=== PATIENT | male | born 1990 | race Caucasian/White ===

== ENCOUNTER 2016-11-22 15:55 | Emergency (ER) | payer MEDICARE, MEDICAID ==
[2016-11-22 16:24] VITALS: BP 122/91
[2016-11-22] MEDS ORDERED: Haloperidol INJ IV/IM* 5 MG/ML AMP ONE (17:42)
[2016-11-22] MEDS ORDERED: diPHENhydraMINE IV* 50 MG/ML 1 ml VIAL (BENADRYL) IM ONE (17:42)
[2016-11-22] MEDS ORDERED: LORazepam INJ* 2 MG/ML 1 ML VIAL ONE (17:42)
[2016-11-22] MEDS ORDERED: LORazepam INJ* 2 MG/ML 1 ML VIAL IM ONE (17:42)
[2016-11-22] MEDS ORDERED: Haloperidol INJ IV/IM* 5 MG/ML AMP IM ONE (17:42)
[2016-11-22] MEDS ORDERED: diPHENhydraMINE IV* 50 MG/ML 1 ml VIAL (BENADRYL) ONE (17:42)
[2016-11-22 18:06] LABS: Hematocrit 47 % (42-52); Hemoglobin 15.7 g/dl (14.0-18.0); Mean Corpuscular HGB Conc 34 g/dl (31-36); Mean Corpuscular Hemoglobin 33 pg (27-31); Mean Corpuscular Volume 98 fL (80-94); Mean Platelet Volume 7 um3 (7.4-10.4); Red Blood Count 4.78 10^6/ul (4.0-5.4); Red Cell Distribution Width 13 % (10.5-15); White Blood Count 9.5 10^3/ul (3.5-10.8)
[2016-11-22 18:09] LABS: Urine Bilirubin Negative (Negative); Urine Glucose Negative (Negative); Urine Nitrite Negative (Negative)
[2016-11-22 18:20] LABS: ALT 15 U/L (7-52); AST 23 U/L (13-39); Albumin 4.6 g/dL (3.2-5.2); Alkaline Phosphatase 53 U/L (34-104); Anion Gap 6 mmol/L (2-11); Benzodiazepine Urine Screen None Detected (None Detect); CO2 Carbon Dioxide 24 mmol/L (22-32); Calcium 9.5 mg/dL (8.6-10.3); Chloride 103 mmol/L (101-111); EGFR African American 124.4 (>60); EGFR Non-African American 96.7 (>60); Globulin 2.9 g/dL (2-4); Glucose 94 mg/dL (70-100); Sodium 133 mmol/L (133-145); Total Protein 7.5 g/dL (6.4-8.9)
[2016-11-22 18:49] LABS: Acetaminophen < 15 mcg/mL; Alcohol < 10 mg/dL (<10); Lithium 0.32 mmol/L (0.6-1.2); Salicylate < 2.50 mg/dL (<30)
[2016-11-22 18:57] LABS: TSH (Thyroid Stimulating Horm) 3.17 mcIU/mL (0.34-5.60)
[2016-11-22 19:39] LABS: BUN/Creatinine Ratio 24.7 (8-20); Blood Urea Nitrogen 23 mg/dL (6-24)
[2016-11-23] MEDS ORDERED: Lithium Carbonate TAB* 300 MG PO ONE ×2 (00:55→09:30)
[2016-11-23] MEDS ORDERED: Lithium Carbonate TAB* 300 MG ONE (00:57)
[2016-11-23] MEDS ORDERED: LORazepam TAB(*) 1 MG PO ONE (11:22)
--- NOTE | 2016-11-30 04:48 | ED ---
Gian Pulliam Erika, scribed for Rui Cheney MD on 11/22/16 at 1602 . Psychiatric Complaint - HPI Summary HPI Summary: Patient is a 26-year-old male BIB police as a 945. Pt reports that he does not know why he is a 945, he just states "the police were very nice to me." He states he does not believe it is due to depression or anxiety. Pt reports that he does not have a place to stay tonight. He denies drug or alcohol use today. He states tobacco use. Hx bipolar disorder, schizophrenia. - History Of Current Complaint Chief Complaint: EDMentalHealth Time Seen by Provider: 11/22/16 16:00 Hx Obtained From: Patient Onset/Duration: Lasting Hours, Still Present Timing: Constant Severity Currently: Moderate Aggravating Factor(s): Nothing Alleviating Factor(s): Nothing Associated Signs And Symptoms: Positive: Negative Related History: Positive For: Prior Psychiatric Issues Has Suicidal: Reports: Thoughts - per triage - Allergies/Home Medications Allergies/Adverse Reactions: Allergies Allergy/AdvReac Type Severity Reaction Status Date / Time No Known Allergies Allergy Verified 11/01/16 04:42 PMH/Surg Hx/FS Hx/Imm Hx Sensory History: Reports: Hx Contacts or Glasses - Glasses Opthamlomology History: Reports: Hx Contacts or Glasses - Glasses Psychiatric History: Reports: Hx Post Traumatic Stress Disorder, Hx Schizophrenia, Hx Bipolar Disorder Denies: Hx of Violent Episodes Against Others Comment Only: Hx Eating Disorder - Unable to determine from pt at time of MHE d/t disorganized thoughts - Family History Known Family History: Negative: Cardiac Disease - Social History Alcohol Use: None Hx Substance Use: No Substance Use Type: Reports: None Hx Tobacco Use: Yes Smoking Status (MU): Current Every Day Smoker Type: Cigarettes Amount Used/How Often: one PPD Review of Systems Negative: Fever Psychological: Other - 941 - pt states unknown reason All Other Systems Reviewed And Are Negative: Yes Physical Exam Triage Information Reviewed: Yes Vital Signs On Initial Exam: Temp Pulse Resp BP Pulse Ox 100.1 F 86 18 122/91 100 11/22/16 16:24 11/22/16 16:24 11/22/16 16:24 11/22/16 16:24 11/22/16 16:24 Vital Signs Reviewed: Yes Appearance: Positive: Well-Appearing, No Pain Distress Skin: Positive: Warm, Skin Color Reflects Adequate Perfusion, Dry Head/Face: Positive: Normal Head/Face Inspection Eyes: Positive: EOMI, MARLEN ENT: Positive: Normal ENT inspection Neck: Positive: Supple, Nontender Respiratory/Lung Sounds: Positive: Clear to Auscultation, Breath Sounds Present Cardiovascular: Positive: RRR Abdomen Description: Positive: Nontender, Soft Bowel Sounds: Positive: Present Musculoskeletal: Positive: Normal, Strength/ROM Intact Neurological: Positive: Normal, Sensory/Motor Intact, Alert, Oriented to Person Place, Time Psychiatric: Positive: Affect/Mood Appropriate Diagnostics - Vital Signs Vital Signs Temp Pulse Resp BP Pulse Ox 11/22/16 16:43 100.1 F 84 16 122/91 100 11/22/16 16:24 100.1 F 86 18 122/91 100 - Laboratory Lab Results: Lab Results 11/22/16 11/22/16 11/22/16 Range/Units 17:56 17:56 17:56 WBC 9.5 (3.5-10.8) 10^3/ul RBC 4.78 (4.0-5.4) 10^6/ul Hgb 15.7 (14.0-18.0) g/dl Hct 47 (42-52) % MCV 98 H (80-94) fL MCH 33 H (27-31) pg MCHC 34 (31-36) g/dl RDW 13 (10.5-15) % Plt Count 263 (150-450) 10^3/ul MPV 7 L (7.4-10.4) um3 Neut % (Auto) 68.3 (38-83) % Lymph % (Auto) 19.0 L (25-47) % Tolland % (Auto) 9.0 (1-9) % Eos % (Auto) 2.8 (0-6) % Baso % (Auto) 0.9 (0-2) % Absolute Neuts (auto) 6.5 (1.5-7.7) 10^3/ul Absolute Lymphs (auto) 1.8 (1.0-4.8) 10^3/ul Absolute Monos (auto) 0.9 H (0-0.8) 10^3/ul Absolute Eos (auto) 0.3 (0-0.6) 10^3/ul Absolute Basos (auto) 0.1 (0-0.2) 10^3/ul Absolute Nucleated RBC 0 10^3/ul Nucleated RBC % 0 Sodium 133 (133-145) mmol/L Potassium 4.0 (3.5-5.0) mmol/L Chloride 103 (101-111) mmol/L Carbon Dioxide 24 (22-32) mmol/L Anion Gap 6 (2-11) mmol/L BUN 23 (6-24) mg/dL Creatinine 0.93 (0.67-1.17) mg/dL Est GFR ( Amer) 124.4 (>60) Est GFR (Non-Af Amer) 96.7 (>60) BUN/Creatinine Ratio 24.7 H (8-20) Glucose 94 (70-100) mg/dL Calcium 9.5 (8.6-10.3) mg/dL Total Bilirubin 0.60 (0.2-1.0) mg/dL AST 23 (13-39) U/L ALT 15 (7-52) U/L Alkaline Phosphatase 53 (34-104) U/L Total Protein 7.5 (6.4-8.9) g/dL Albumin 4.6 (3.2-5.2) g/dL Globulin 2.9 (2-4) g/dL Albumin/Globulin Ratio 1.6 (1-3) TSH 3.17 (0.34-5.60) mcIU/mL Urine Color Roopa Urine Appearance Turbid Urine pH 5.0 (5-9) Ur Specific Edgar 1.029 (1.010-1.030) Urine Protein Negative (Negative) Urine Ketones Trace H (Negative) Urine Blood Negative (Negative) Urine Nitrate Negative (Negative) Urine Bilirubin Negative (Negative) Urine Urobilinogen Negative (Negative) Ur Leukocyte Esterase Negative (Negative) Urine Glucose Negative (Negative) Salicylates < 2.50 (<30) mg/dL Urine Opiates Screen (None Detect) Acetaminophen < 15 mcg/mL Ur Barbiturates Screen (None Detect) Ur Phencyclidine Scrn (None Detect) Ur Amphetamines Screen (None Detect) U Benzodiazepines Scrn (None Detect) Mehama 0.32 L (0.6-1.2) mmol/L Urine Cocaine Screen (None Detect) U Cannabinoids Screen (None Detect) Serum Alcohol < 10 (<10) mg/dL 11/22/16 Range/Units 17:56 WBC (3.5-10.8) 10^3/ul RBC (4.0-5.4) 10^6/ul Hgb (14.0-18.0) g/dl Hct (42-52) % MCV (80-94) fL MCH (27-31) pg MCHC (31-36) g/dl RDW (10.5-15) % Plt Count (150-450) 10^3/ul MPV (7.4-10.4) um3 Neut % (Auto) (38-83) % Lymph % (Auto) (25-47) % Tolland % (Auto) (1-9) % Eos % (Auto) (0-6) % Baso % (Auto) (0-2) % Absolute Neuts (auto) (1.5-7.7) 10^3/ul Absolute Lymphs (auto) (1.0-4.8) 10^3/ul Absolute Monos (auto) (0-0.8) 10^3/ul Absolute Eos (auto) (0-0.6) 10^3/ul Absolute Basos (auto) (0-0.2) 10^3/ul Absolute Nucleated RBC 10^3/ul Nucleated RBC % Sodium (133-145) mmol/L Potassium (3.5-5.0) mmol/L Chloride (101-111) mmol/L Carbon Dioxide (22-32) mmol/L Anion Gap (2-11) mmol/L BUN (6-24) mg/dL Creatinine (0.67-1.17) mg/dL Est GFR ( Amer) (>60) Est GFR (Non-Af Amer) (>60) BUN/Creatinine Ratio (8-20) Glucose (70-100) mg/dL Calcium (8.6-10.3) mg/dL Total Bilirubin (0.2-1.0) mg/dL AST (13-39) U/L ALT (7-52) U/L Alkaline Phosphatase (34-104) U/L Total Protein (6.4-8.9) g/dL Albumin (3.2-5.2) g/dL Globulin (2-4) g/dL Albumin/Globulin Ratio (1-3) TSH (0.34-5.60) mcIU/mL Urine Color Urine Appearance Urine pH (5-9) Ur Specific Edgar (1.010-1.030) Urine Protein (Negative) Urine Ketones (Negative) Urine Blood (Negative) Urine Nitrate (Negative) Urine Bilirubin (Negative) Urine Urobilinogen (Negative) Ur Leukocyte Esterase (Negative) Urine Glucose (Negative) Salicylates (<30) mg/dL Urine Opiates Screen None detected (None Detect) Acetaminophen mcg/mL Ur Barbiturates Screen None detected (None Detect) Ur Phencyclidine Scrn None detected (None Detect) Ur Amphetamines Screen None detected (None Detect) U Benzodiazepines Scrn None detected (None Detect) Mehama (0.6-1.2) mmol/L Urine Cocaine Screen None detected (None Detect) U Cannabinoids Screen None detected (None Detect) Serum Alcohol (<10) mg/dL Result Diagrams: 11/22/16 17:56 11/22/16 17:56 Lab Statement: Any lab studies that have been ordered have been reviewed, and results considered in the medical decision making process. Course/Dx - Course Course Of Treatment: 20:15 - pt medically clear for MHU evaluation Assessment/Plan: MHE PENDING AT SHIFT CHANGE STABLE - Differential Dx/Clinical Impression Provider Diagnosis: Mental health problem Discharge - Discharge Plan Condition: Stable Disposition: TRANS HIGHER LVL OF CARE FAC Discharge Disposition Comment: Pt signed out to Dr. Mejia pending MHU Evaluation The documentation as recorded by the Gian garcia Erika accurately reflects the service I personally performed and the decisions made by me, Rui Cheney MD.
--- NOTE | 2016-12-18 19:56 | ED ---
jadyn Pulliam Timothy, scribed for Royal Mejia MD on 11/22/16 at 2310 . Progress - Progress Note Progress Note: Pt is a sign out from Dr. Cheney. Awaiting Psych eval. Pt will be signed out to Dr. Lester. Course/Dx - Course Course Of Treatment: Pt is awaiting psych eval and will be signed out to Dr. Lester. - Diagnoses Provider Diagnoses: Mental health problem The documentation as recorded by the jadyn garcia Timothy accurately reflects the service I personally performed and the decisions made by , Royal Mejia MD.
--- NOTE | 2016-12-23 13:20 | CONSULT ---
Consult Consult: This patient presented on a previous shift and was medically cleared, had a MHE , and was transferred in stable condition with a diagnosis of psychosis.
== END 2016-11-23 13:38 | disposition short-term general hospital (02) ==
LOC: ED 15:55
DX: Z00.8 Encounter for other general examination (principal); Z86.59 Personal history of other mental and behavioral disorders; F17.210 Nicotine dependence, cigarettes, uncomplicated
CPT/HCPCS: 36415; 80053; 80178; 80307; 80320; 80329; 81003; 84443; 85025; 96372; 96374; 99283; A9270-GY; G0480; J1200; J1630; J2060

== ENCOUNTER 2017-01-09 10:36 | Inpatient (IN) | payer MEDICARE, MEDICAID ==
--- NOTE | 2017-01-09 11:40 | ED ---
Psychiatric Complaint - HPI Summary HPI Summary: 26M presents with flight of ideas. He presents via EMS as 941. States had a dream last week and that has increased his anxiety and caused him to have some negative thoughts. He denies any recent drug use. He does not want to hurt myself or others. He has PMH of schizophrenia and bipolar. - History Of Current Complaint Chief Complaint: EDMentalHealth Time Seen by Provider: 01/09/17 11:13 - Allergies/Home Medications Allergies/Adverse Reactions: Allergies Allergy/AdvReac Type Severity Reaction Status Date / Time No Known Allergies Allergy Verified 11/01/16 04:42 PMH/Surg Hx/FS Hx/Imm Hx Cardiovascular History: Denies: Hx Hypertension Sensory History: Reports: Hx Contacts or Glasses - Glasses Opthamlomology History: Reports: Hx Contacts or Glasses - Glasses Psychiatric History: Reports: Hx Post Traumatic Stress Disorder, Hx Schizophrenia, Hx Bipolar Disorder, Other Psychiatric Issues/Disorders - Schizoeffective disorder Denies: Hx of Violent Episodes Against Others Comment Only: Hx Eating Disorder - Unable to determine from pt at time of MHE d/t disorganized thoughts Infectious Disease History: No Infectious Disease History: Denies: Traveled Outside the [place] in Last 30 Days - Family History Known Family History: Negative: Cardiac Disease - Social History Alcohol Use: None Hx Substance Use: No Substance Use Type: Reports: None Hx Tobacco Use: Yes Smoking Status (MU): Current Every Day Smoker Type: Cigarettes Amount Used/How Often: one PPD Review of Systems Negative: Fever Negative: Chest Pain Negative: Shortness Of Breath Positive: Other - flight of ideas All Other Systems Reviewed And Are Negative: Yes Physical Exam Triage Information Reviewed: Yes Vital Signs On Initial Exam: Initial Vitals Temp Pulse Resp BP Pulse Ox 98.2 F 76 16 111/76 100 01/09/17 10:50 01/09/17 10:50 01/09/17 10:50 01/09/17 10:50 01/09/17 10:50 Vital Signs Reviewed: Yes Appearance: Positive: Well-Appearing Skin: Positive: Warm, Dry Head/Face: Positive: Normal Head/Face Inspection Eyes: Positive: Normal, Conjunctiva Clear Respiratory/Lung Sounds: Positive: Clear to Auscultation, Breath Sounds Present Cardiovascular: Positive: Normal, RRR Abdomen Description: Positive: Nontender, Soft Bowel Sounds: Positive: Present - Ulster Coma Scale Coma Scale Total: 15 Diagnostics - Vital Signs Vital Signs Temp Pulse Resp BP Pulse Ox 01/09/17 10:50 98.2 F 76 16 111/76 100 - Laboratory Result Diagrams: 01/09/17 11:35 01/09/17 11:35 Lab Statement: Any lab studies that have been ordered have been reviewed, and results considered in the medical decision making process. Re-Evaluation - Re-Evaluation First Eval Comment: became agitated so dr bustamante gave b52 Course/Dx - Course Course Of Treatment: 26M presents as 941 via EMS. has flight of ideas on exam. denies any SI/HI. has PMH of schizophrenia and bipolar. is medically clear for MHE, will be admitted due to not taking medications - Differential Dx/Clinical Impression Differential Diagnosis/HQI/PQRI: Positive: Bipolar Disorder, Schizophrenia Provider Diagnosis: Schizophrenia, Psychosis Discharge - Discharge Plan Condition: Stable Disposition: ADMITTED TO [facility]
[2017-01-09 11:46] LABS: Hematocrit 46 % (42-52); Hemoglobin 15.6 g/dl (14.0-18.0); Mean Corpuscular HGB Conc 34 g/dl (31-36); Mean Corpuscular Hemoglobin 33 pg (27-31); Mean Corpuscular Volume 97 fL (80-94); Mean Platelet Volume 8 um3 (7.4-10.4); Red Blood Count 4.74 10^6/ul (4.0-5.4); Red Cell Distribution Width 13 % (10.5-15); White Blood Count 4.3 10^3/ul (3.5-10.8)
[2017-01-09 12:02] LABS: ALT 11 U/L (7-52); AST 19 U/L (13-39); Albumin 4.4 g/dL (3.2-5.2); Alkaline Phosphatase 45 U/L (34-104); Anion Gap 7 mmol/L (2-11); Blood Urea Nitrogen 13 mg/dL (6-24); CO2 Carbon Dioxide 25 mmol/L (22-32); Calcium 9.8 mg/dL (8.6-10.3); Chloride 105 mmol/L (101-111); EGFR African American 124.4 (>60); EGFR Non-African American 96.7 (>60); Globulin 2.9 g/dL (2-4); Glucose 81 mg/dL (70-100); Potassium 4.2 mmol/L (3.5-5.0); Sodium 137 mmol/L (133-145); Total Protein 7.3 g/dL (6.4-8.9)
[2017-01-09 12:18] LABS: Acetaminophen < 15 mcg/mL; Alcohol < 10 mg/dL (<10); Salicylate < 2.50 mg/dL (<30)
[2017-01-09 12:27] LABS: TSH (Thyroid Stimulating Horm) 1.68 mcIU/mL (0.34-5.60)
[2017-01-09] MEDS ORDERED: LORazepam TAB(*) 1 MG PO ONE (13:29)
[2017-01-09] MEDS ORDERED: LORazepam INJ* 2 MG/ML 1 ML VIAL IM ONE (14:34)
[2017-01-09] MEDS ORDERED: diPHENhydraMINE IV* 50 MG/ML 1 ml VIAL (BENADRYL) IM ONE (14:34)
[2017-01-09] MEDS ORDERED: Haloperidol INJ IV/IM* 5 MG/ML AMP IM ONE (14:34)
[2017-01-09] MEDS ORDERED: Haloperidol INJ IV/IM* 5 MG/ML AMP ONE (14:49)
[2017-01-09] MEDS ORDERED: LORazepam INJ* 2 MG/ML 1 ML VIAL ONE (14:49)
[2017-01-09] MEDS ORDERED: diPHENhydraMINE IV* 50 MG/ML 1 ml VIAL (BENADRYL) ONE (14:49)
[2017-01-09] MEDS ORDERED: Acetaminophen TAB* 325 MG PO PRN (15:59)
[2017-01-09] MEDS ORDERED: Al Hydrox/Mg Hydrox/Simet LIQ* 30 ML UDC PO PRN (15:59)
[2017-01-09] MEDS ORDERED: fluPHENAZine HCL TAB* 5 MG PO PRN (16:01)
[2017-01-09] MEDS ORDERED: Lithium Carbonate TAB* 300 MG PO SCH (21:00)
[2017-01-09] MEDS: Lithium Carbonate TAB* 300 MG PO SCH (21:01)
[2017-01-10] MEDS: Vitamin THERAPEUTIC TAB PO SCH (10:37)
[2017-01-10] MEDS: Lithium Carbonate TAB* 300 MG PO SCH ×2 (10:38→20:39)
--- NOTE | 2017-01-10 13:02 | HP ---
DATE OF ADMISSION: 01/09/2017. JUSTIFICATION FOR ADMISSION: The patient is in need of 24 hour supervision and care secondary to in ability to take care of himself secondary to paranoid and persecutory ideations. CHIEF COMPLAINT: "I don't think that it's a delusion when you see 40 people walking after you in a [employer]." HISTORY OF PRESENT ILLNESS: The patient is a 26-year-old, single, white male with a history of schi zoaffective disorder with serial nonadherence to outpatient psychiatric treatment who was brought in to the hospital by police due to frequently arriving at law enforcement agencies with bizarre delus ional complaints. My understanding is that the patient has made false reports of being stalked and p ersecuted to not only the [place] [employer], but to the local [facility] branch, as well as the [facility] Police. When he arrived, he was agitated, requiring an intramuscular injection of antips ychotic medications. He was observed pouring water onto the floor and telling people that they were not qualified to do their jobs. We were able to reach his father, Madhu Bernard, who lives in [place], [place] and Ray indicated that the patient has been off his medications for over a month. He apparently believes that he is being followed around the city, including 50 people at a local [facility] stating that they wanted to talk to him. He also is telling me that the local [employer] wants his input for crimes around the subject of drug dealing in our community. Apparently the patient is now homeless, being kicked out of his apartment that he shared with some students at [employer]. He blames this on them. Indicating that they were frequently trying to convince him that he should use drugs. One of his trips to the [facility] Police was to inform on them. An michelle tional concern is that he recently gave $6,000.00 away to a [employer] fund. He also ended his disability and food stamps due to his paranoid thoughts. Right now he does not have realistic thoug hts about where he will live or how he will take care of himself. We spoke with representatives of [facility] who indicate that he has not been regularly following up with them and they are concerned because he is not eating. They had initiated a court order for an AOT which is s till being processed. When I asked the patient what he wants, he indicates that he does not need ps ychiatric hospitalization nor does he need psychiatric medications, telling me that various medicati ons have made him feel either high or made him hallucinate. He is unable to give me much of a coher ent plan in terms of how he would meet his most basic needs in the community were I to discharge kathleen myers. PAST PSYCHIATRIC HISTORY: The patient was admitted to my service in September of 2016 at which time he was stabilized on Kuna. He returned to our hospital on November 22 due to psychotic agitatio n and at that time was transferred to [facility] due to lack of bed availability here a [facility]. The patient indicates that he has been suicidal in the past starting in 2007 following a jovany oting event on the campus of [facility]. He indicates that although he has had suicidal ideation s on numerous occasions, that he denies them currently and he has not history of formal attempts. H e also denies violence towards others. The patient indicates that he has had up to four hospitaliza tions at the [facility] in [place], [place], the first being in November of 2012. His hos pitalizations there have been for various reasons, such as stopping eating or being preoccupied with a murder which had occurred in [place], [place]. Apparently his long-term outpatient psych iatrist named Dr. Antonio Goss in 2015 and the patient has never really hooked on wit h any formal outpatient therapy since then. He indicates that he has had several trials of medicati ons in the past, including at least one trial with an SRI. He has been on Depakote, Kuna, Invega , Risperdal, Zyprexa, Abilify, Wellbutrin, and Seroquel. In the past, he has undergone treatment ov er his objection, along with forced medications. He has no history of state hospitalization. His di agnosis has been schizoaffective disorder, bipolar type. PAST MEDICAL HISTORY: No active problems. PAST SURGICAL HISTORY: No history of surgeries. MEDICATIONS: Currently none. ALLERGIES: No known drug allergies. FAMILY HISTORY: The patient states that he is unaware of anyone having mental illness within his fa christopher. SUBSTANCE ABUSE HISTORY: Negative for illicit drugs, alcohol, or tobacco. SOCIAL HISTORY: The patient was born in an [employer] family following his father around the country as h is father served in the armed forces. He is the oldest of three children, having a 25-year-old brot her and a 16-year-old half-sister. His parents when he was very young and he was raised pr imarily by his father with the assistance of a paternal aunt. He was able to graduate high school [place], [place] where his mom currently lives and he had three years of college at the [employer]. 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 The patient has never bee n in the . He has never been , has no children. He is not sexually active and does not have any history of sexually transmitted diseases. The patient is not mormon and indicates t hat he has never had any problem with the legal authorities. REVIEW OF SYSTEMS: The patient denies headache, double vision, sore throat, cough, chest pain, and difficulty breathing. He denies abdominal pain, nausea, vomiting, diarrhea, or constipation. He de nies difficulty ambulating, fevers, changes in weight or rashes. PHYSICAL EXAMINATION VITAL SIGNS: Blood pressure 117/57, heart rate 75, temperature 97.8 degrees Fahrenheit, respiratory rate 16, oxygen saturations 100 percent on room air. HEENT: Head is normocephalic, atraumatic. NECK: Supple. CHEST: Clear to auscultation bilaterally. CARDIAC: Exam reveals normal heart sounds. ABDOMEN: Soft and nontender. SKIN: Warm and dry. MUSCULOSKELETAL: Exam reveals a full range of motion in all four extremities. NEUROLOGIC: He is grossly intact with no focal deficits. LABORATORY DATA: His complete blood count is within normal limits as is his complete metabolic reed el. TSH is normal at 1.68. Alcohol level is negative. MENTAL STATUS EXAM: The patient is a young, white male wearing eye glasses with brown hair. He shayne ears to have somewhat minimal grooming with a receding hairline. He is wearing patient scrubs. He a ppears to be somewhat uncomfortable, guarded and suspicious. Voice has normal rate, tone and volume . Mood is anxious with a constricted affect. Thought process is circumstantial. Thought content i s significant for paranoid delusions to the effect that people are following him and trying to get h im to use drugs. He denies suicidal or homicidal ideations at this time. He denies auditory of vis ual hallucinations. Insight and judgment appear to be markedly impaired given his long history of r efusing medications. Cognitively, he is awake and alert with what would appear to be an average int ellect. DIAGNOSES: AXIS I: Schizoaffective disorder, bipolar type. AXIS II: Deferred. AXIS III: None. AXIS IV: Moderate, housing and access to healthcare stressors. AXIS V: At this time is 30. IMPRESSION: The patient is a 26-year-old, single, white male with a history of schizoaffective diso rder and recurrent noncompliance with antipsychotic medications who has not followed through with me dical or psychiatric treatment here in the [facility] since moving from [place] back in September of 2016. Currently, he presents with extreme paranoia and obvious lack of self-care. He is awaitin g an AOT order through the [facility] and his family has a great deal of c oncern about his lack of self-care, specifically he is homeless, apparently not eating recently, has given up his Social Security and food stamps, and recently gave his money away to a chapo. These do not clau well in terms of his thought process and ability to make rational decisions for his own self preservation. This and his over utilization and delusional misuse of local law enforcement re sources make me very concerned about his well being and I think the hospital is justified in keeping him here on an involuntary 9.39 status. PLAN: The patient is admitted to the Adult Behavioral [facility] Unit where he is placed on q.30 minute checks for his own safety. After discussing his various medication trials in the past, ultimately he does agree to low dose Abilify. Will try to contact his father for further collateral informatio n and to rally psychosocial support. It may be that he is better off being back in the [facility]. If we cannot stabilize him, we would consider long-term state hospitalization in the event that we did not feel that he could safely reside back in the community following discharge. While alexandra kulkarni is here, he is certainly encouraged to avail himself of all milieu activities, including individua l and group psychotherapies. [id number]/[facility] #: [id number]
[2017-01-10] MEDS ORDERED: ARIPiprazole TAB* 5 MG PO SCH (21:00)
[2017-01-11] MEDS: Lithium Carbonate TAB* 300 MG PO SCH ×2 (08:30→21:11)
[2017-01-11] MEDS: Vitamin THERAPEUTIC TAB PO SCH (08:30)
--- NOTE | 2017-01-11 13:58 | PN ---
Subjective - Subjective Service Type: 48305 Hosp care 15 min low complexity Subjective: The patient appears much more reality-focussed today and is talking with AUDELIA Felton about supportive housing and ACT services when I approach. He is compliant with the lithium but refusing aripiprazole, indicating that it causes confusion and distorted thinking. He wants to get into a supported living environment following this discharge and appears to be cooperating with staff on this. He is reluctant to have his father, Boyd Bernard, come for a family visit from [place], [place], but he doesn't refuse it. He denies SI or HI. Objective - Appearance Appearance: Well Developed/Nourished Dysmorphic Features: No Hygiene: Normal Grooming: Fairly Well Kept - Behavior Psychomotor Activities: Normal Exhibits Abnormal Movement: No - Attitude and Relatedness Attitude and Relatedness: Cooperative Eye Contact: Fair - Speech Quality: Unpressured Latencies: Normal Quantity: Appropriate - Mood Patient's Decription of Mood: "Fine" - Affect Observed Affect: Fair Affect Consistent with: Euthymia - Thought Process Patient's Thought Process: Coherent Thought Content: Yes Paranoid Ideation, No Passive Wish, No Suicidal Planning, No Homicidal Ideation - Sensorium Experiencing Hallucinations: No, Sensorium is Clear Type of Hallucinations: Visual: No, Auditory: No, Command: No - Level of Consciousness Level of Consciousness: Alert Orientation: Yes Intact, Yes Orientated to Time, Yes Orientated to Place, Yes Orientated to Person - Impulse Control Impulse Control: Tenuous - Insight and Judgement Insight and Judgement: Fair - Group Participation Particating in Group Activities: No - Medication Management Medication Management Adherence: Yes Assessment - Assessment Merits Inpatient Hospitalization: For Immediate Safety, For Stabilization Inpatient DSM-IV Dx: Schizoaffective DO, bipolar type Clinical Impression: 26 y.o. single, white male with a hx of schizoaffective DO, bipolar type who was admitted involuntarily due to paranoia, lack of self care, not eating and giving his money away to [employer]. He is now homeless and had his SSI and food stamp benefits turned off. Plan - Plan Treatment Plan: Name: SPENCER BERNARD Birthdate: 1990 [id number] The patient is taking lithium 600mg PO BID but declines antipsychotics, including long acting injectables. He appears less delusional today and is appropriately working with SW on d/c planning. Continued Medication Management: Continue Outpt Medication Medications: Current Medications Acetaminophen (Tylenol Tab*) 650 mg PO Q4H PRN PRN Reason: for pain; or Temp >101 F Al Hydrox/Mg Hydrox/Simethicone (Maalox Plus*) 30 ml PO Q4H PRN PRN Reason: INDIGESTION Fluphenazine HCl (Prolixin Tab*) 5 mg PO Q6H PRN PRN Reason: AGITATION/ANXIETY/INSOMNIA [place] Carbonate ([place] Carbonate Tab*) 600 mg PO BID [facility] Last Admin: 01/11/17 08:30 Dose: 600 mg Multivitamins (Theragran Tab*) 1 tab PO DAILY [facility] Last Admin: 01/11/17 08:30 Dose: 1 tab - Discharge Plan Discharge Plan: Inpatient Hospitalization
[2017-01-12] MEDS: Vitamin THERAPEUTIC TAB PO SCH (08:33)
[2017-01-12] MEDS: Lithium Carbonate TAB* 300 MG PO SCH ×2 (08:33→20:53)
--- NOTE | 2017-01-12 10:44 | PN ---
Subjective - Subjective Service Type: 05574 Hosp care 15 min low complexity Subjective: The patient has been cooperative with SW efforts to wrap residential and clinical psychiatric services around him here in the [facility]. He remains somewhat paranoid but with no AH, VH, SI or HI. He is tolerating lithium well and offers no current complaints. Objective - Appearance Appearance: Well Developed/Nourished Dysmorphic Features: No Hygiene: Normal Grooming: Fairly Well Kept - Behavior Psychomotor Activities: Normal Exhibits Abnormal Movement: No - Attitude and Relatedness Attitude and Relatedness: Cooperative Eye Contact: Fair - Speech Quality: Unpressured Latencies: Normal Quantity: Appropriate - Mood Patient's Decription of Mood: "Okay" - Affect Observed Affect: Good Affect Consistent with: Euthymia - Thought Process Patient's Thought Process: Coherent Thought Content: Yes Paranoid Ideation, No Passive Wish, No Suicidal Planning, No Homicidal Ideation - Sensorium Experiencing Hallucinations: No, Sensorium is Clear Type of Hallucinations: Visual: No, Auditory: No, Command: No - Level of Consciousness Level of Consciousness: Alert Orientation: Yes Intact, Yes Orientated to Time, Yes Orientated to Place, Yes Orientated to Person - Impulse Control Impulse Control: Tenuous - Insight and Judgement Insight and Judgement: Fair - Group Participation Particating in Group Activities: Yes - Medication Management Medication Management Adherence: Yes Assessment - Assessment Merits Inpatient Hospitalization: Consolidate Improvements, Pending Safe DC Plan Inpatient DSM-IV Dx: Schizoaffective DO, bipolar type Clinical Impression: 26 y.o. single, white male with a hx of schizoaffective DO, bipolar type who was admitted involuntarily due to paranoia, lack of self care, not eating and giving his money away to [employer]. He is now homeless and had his SSI and food stamp benefits turned off. Plan - Plan Treatment Plan: Name: SPENCER BECK Birthdate: 1990 [id number] The patient is taking lithium 600mg PO BID but declines antipsychotics, including long acting injectables. He appears less delusional today and is appropriately working with on d/c planning. Family meeting with his father on January 17 at 11:00. Continued Medication Management: Continue Outpt Medication Medications: Current Medications Acetaminophen (Tylenol Tab*) 650 mg PO Q4H PRN PRN Reason: for pain; or Temp >101 F Al Hydrox/Mg Hydrox/Simethicone (Maalox Plus*) 30 ml PO Q4H PRN PRN Reason: INDIGESTION Fluphenazine HCl (Prolixin Tab*) 5 mg PO Q6H PRN PRN Reason: AGITATION/ANXIETY/INSOMNIA [place] Carbonate ([place] Carbonate Tab*) 600 mg PO BID [facility] Last Admin: 01/12/17 08:33 Dose: 600 mg Multivitamins (Theragran Tab*) 1 tab PO DAILY [facility] Last Admin: 01/12/17 08:33 Dose: 1 tab - Discharge Plan Discharge Plan: Inpatient Hospitalization
[2017-01-13] MEDS: Lithium Carbonate TAB* 300 MG PO SCH ×2 (09:24→21:38)
[2017-01-13] MEDS: Vitamin THERAPEUTIC TAB PO SCH (09:24)
--- NOTE | 2017-01-13 13:10 | PN ---
Subjective - Subjective Service Type: 83039 Hosp care 15 min low complexity Subjective: The patient is calm and cooperative and denies any acute symptoms of mental illness. He expresses being nervous about the future and seems to acknowledge that maintaining adherence with mental health treatment in the community and staying out of the hospital has been a struggle for him in the past. "I just need to know that I'm on the right path before I get out of here." He denies SI , HI, AH or VH. Objective - Appearance Appearance: Well Developed/Nourished Dysmorphic Features: No Hygiene: Normal Grooming: Well Kept - Behavior Psychomotor Activities: Normal Exhibits Abnormal Movement: No - Attitude and Relatedness Attitude and Relatedness: Cooperative Eye Contact: Fair - Speech Quality: Unpressured Latencies: Normal Quantity: Appropriate - Mood Patient's Decription of Mood: "Okay" - Affect Observed Affect: Fair Affect Consistent with: Euthymia - Thought Process Patient's Thought Process: Coherent Thought Content: Yes Paranoid Ideation, No Passive Wish, No Suicidal Planning, No Homicidal Ideation - Sensorium Experiencing Hallucinations: No, Sensorium is Clear Type of Hallucinations: Visual: No, Auditory: No, Command: No - Level of Consciousness Level of Consciousness: Alert Orientation: Yes Intact, Yes Orientated to Time, Yes Orientated to Place, Yes Orientated to Person - Impulse Control Impulse Control: Tenuous - Insight and Judgement Insight and Judgement: Fair - Group Participation Particating in Group Activities: Yes - Medication Management Medication Management Adherence: Yes Assessment - Assessment Merits Inpatient Hospitalization: Consolidate Improvements, Pending Safe DC Plan Inpatient DSM-IV Dx: Schizoaffective DO, bipolar type Clinical Impression: 26 y.o. single, white male with a hx of schizoaffective DO, bipolar type who was admitted involuntarily due to paranoia, lack of self care, not eating and giving his money away to [employer]. He is now homeless and had his SSI and food stamp benefits turned off. Plan - Plan Treatment Plan: Name: SPENCER BECK Birthdate: 1990 [id number] The patient is taking lithium 600mg PO BID but declines antipsychotics, including long acting injectables. He has become less delusional and is actively working with SW on d/c planning. Family meeting with his father on January 17 at 11:00. Continued Medication Management: Continue Outpt Medication Medications: Current Medications Acetaminophen (Tylenol Tab*) 650 mg PO Q4H PRN PRN Reason: for pain; or Temp >101 F Al Hydrox/Mg Hydrox/Simethicone (Maalox Plus*) 30 ml PO Q4H PRN PRN Reason: INDIGESTION Fluphenazine HCl (Prolixin Tab*) 5 mg PO Q6H PRN PRN Reason: AGITATION/ANXIETY/INSOMNIA [place] Carbonate ([place] Carbonate Tab*) 600 mg PO BID [facility] Last Admin: 01/13/17 09:24 Dose: 600 mg Multivitamins (Theragran Tab*) 1 tab PO DAILY [facility] Last Admin: 01/13/17 09:24 Dose: 1 tab - Discharge Plan Discharge Plan: Inpatient Hospitalization
[2017-01-14] MEDS: Lithium Carbonate TAB* 300 MG PO SCH ×2 (08:21→20:51)
[2017-01-14] MEDS: Vitamin THERAPEUTIC TAB PO SCH (08:22)
--- NOTE | 2017-01-14 15:05 | PN ---
Subjective - Subjective Service Type: 60298 Hosp care 15 min low complexity Subjective: The patient continues to adhere to twice daily lithium therapy and does not demonstrate any overt psychosis. He is visible, and audible, on the unit, serenading his peers to singing, while playing the unit guitar. He denies any acute problems and is looking forward to the family meeting with his father on Monday (01/17) for d/c planning. He denies SI, HI, AH, VH. Objective - Appearance Appearance: Well Developed/Nourished Dysmorphic Features: No Hygiene: Normal Grooming: Fairly Well Kept - Behavior Psychomotor Activities: Normal Exhibits Abnormal Movement: No - Attitude and Relatedness Attitude and Relatedness: Cooperative Eye Contact: Fair - Speech Quality: Unpressured Latencies: Normal Quantity: Appropriate - Mood Patient's Decription of Mood: "Okay" - Affect Observed Affect: Fair Affect Consistent with: Euthymia - Thought Process Patient's Thought Process: Coherent Thought Content: Yes Paranoid Ideation, No Passive Wish, No Suicidal Planning, No Homicidal Ideation - Sensorium Experiencing Hallucinations: No, Sensorium is Clear Type of Hallucinations: Visual: No, Auditory: No, Command: No - Level of Consciousness Level of Consciousness: Alert Orientation: Yes Intact, Yes Orientated to Time, Yes Orientated to Place, Yes Orientated to Person - Impulse Control Impulse Control: Tenuous - Insight and Judgement Insight and Judgement: Fair - Group Participation Particating in Group Activities: Yes - Medication Management Medication Management Adherence: Yes Assessment - Assessment Merits Inpatient Hospitalization: Consolidate Improvements, Pending Safe DC Plan Inpatient DSM-IV Dx: Schizoaffective DO, bipolar type Clinical Impression: 26 y.o. single, white male with a hx of schizoaffective DO, bipolar type who was admitted involuntarily due to paranoia, lack of self care, not eating and giving his money away to [employer]. He is now homeless and had his SSI and food stamp benefits turned off. Plan - Plan Treatment Plan: Name: SPENCER BECK Birthdate: 1990 [id number] The patient is taking lithium 600mg PO BID but declines antipsychotics, including long acting injectables. He has become less delusional and is actively working with SW on d/c planning. Family meeting with his father on January 17 at 13:00. Continued Medication Management: Continue Outpt Medication Medications: Current Medications Acetaminophen (Tylenol Tab*) 650 mg PO Q4H PRN PRN Reason: for pain; or Temp >101 F Al Hydrox/Mg Hydrox/Simethicone (Maalox Plus*) 30 ml PO Q4H PRN PRN Reason: INDIGESTION Fluphenazine HCl (Prolixin Tab*) 5 mg PO Q6H PRN PRN Reason: AGITATION/ANXIETY/INSOMNIA [place] Carbonate ([place] Carbonate Tab*) 600 mg PO BID [facility] Last Admin: 01/14/17 08:21 Dose: 600 mg Multivitamins (Theragran Tab*) 1 tab PO DAILY [facility] Last Admin: 01/14/17 08:22 Dose: 1 tab - Discharge Plan Discharge Plan: Inpatient Hospitalization
[2017-01-15] MEDS: Lithium Carbonate TAB* 300 MG PO SCH ×2 (08:28→20:30)
[2017-01-15] MEDS: Vitamin THERAPEUTIC TAB PO SCH (08:28)
[2017-01-16] MEDS: Lithium Carbonate TAB* 300 MG PO SCH ×2 (08:28→20:47)
[2017-01-16] MEDS: Vitamin THERAPEUTIC TAB PO SCH (08:29)
--- NOTE | 2017-01-16 11:53 | PN ---
Subjective - Subjective Service Type: 10342 Hosp care 15 min low complexity Subjective: The patient has no complaints and is tolerating his medications well. He has meetings tomorrow with his father, as well as [facility] services to discuss d/c planning and housing issues respectively. He denies paranoia, SI or HI. Objective - Appearance Appearance: Well Developed/Nourished Dysmorphic Features: No Hygiene: Normal Grooming: Fairly Well Kept - Behavior Psychomotor Activities: Normal Exhibits Abnormal Movement: No - Attitude and Relatedness Attitude and Relatedness: Cooperative Eye Contact: Good - Speech Quality: Unpressured Latencies: Normal Quantity: Appropriate - Mood Patient's Decription of Mood: "Good" - Affect Observed Affect: Fair Affect Consistent with: Euthymia - Thought Process Patient's Thought Process: Coherent Thought Content: No Passive Wish, No Suicidal Planning, No Homicidal Ideation, No Paranoid Ideation - Sensorium Experiencing Hallucinations: No, Sensorium is Clear Type of Hallucinations: Visual: No, Auditory: No, Command: No - Level of Consciousness Orientation: Yes Intact, Yes Orientated to Time, Yes Orientated to Place, Yes Orientated to Person - Impulse Control Impulse Control: Tenuous - Insight and Judgement Insight and Judgement: Fair - Group Participation Particating in Group Activities: Yes - Medication Management Medication Management Adherence: Yes Assessment - Assessment Merits Inpatient Hospitalization: Consolidate Improvements, Pending Safe DC Plan Inpatient DSM-IV Dx: Schizoaffective DO, bipolar type Clinical Impression: 26 y.o. single, white male with a hx of schizoaffective DO, bipolar type who was admitted involuntarily due to paranoia, lack of self care, not eating and giving his money away to [employer]. He is now homeless and had his SSI and food stamp benefits turned off. Plan - Plan Treatment Plan: Name: SPENCER BECK Birthdate: 1990 [id number] The patient is taking lithium 600mg PO BID but declines antipsychotics, including long acting injectables. He has become less delusional and is actively working with on d/c planning. Family meeting with his father on January 17 at 13:00. Continued Medication Management: Continue Outpt Medication Medications: Current Medications Acetaminophen (Tylenol Tab*) 650 mg PO Q4H PRN PRN Reason: for pain; or Temp >101 F Al Hydrox/Mg Hydrox/Simethicone (Maalox Plus*) 30 ml PO Q4H PRN PRN Reason: INDIGESTION Fluphenazine HCl (Prolixin Tab*) 5 mg PO Q6H PRN PRN Reason: AGITATION/ANXIETY/INSOMNIA [place] Carbonate ([place] Carbonate Tab*) 600 mg PO BID [facility] Last Admin: 01/16/17 08:28 Dose: 600 mg Multivitamins (Theragran Tab*) 1 tab PO DAILY [facility] Last Admin: 01/16/17 08:29 Dose: 1 tab - Discharge Plan Discharge Plan: Inpatient Hospitalization
[2017-01-17] MEDS: Lithium Carbonate TAB* 300 MG PO SCH ×2 (08:30→20:40)
[2017-01-17] MEDS: Vitamin THERAPEUTIC TAB PO SCH (08:30)
--- NOTE | 2017-01-17 16:48 | PN ---
Subjective - Subjective Service Type: 11321 Family Medical Psyc Subjective: Family meeting with patient accompanied by AUDELIA Felton and patient's father, Mr. Antwan Bernard. Spencer continues to express his interest in remaining in treatment and thinks supportive housing along ACT services will allow him to remain in the community without the necessity of repeat psychiatric hospitalizations. "I like how I feel on the lithium. I like that it's a natural substance. I plan on staying on it for at least a year before I get off." The patient is confronted about his history of repeat decompensations in the setting of poor med adherence and advised not to make any changes in his treatment without advising his providers first. He agrees to this. Father is mostly stoic throughout the meeting although he does reveal his concerns regarding Spencer's handling of his money and he inquires as to whether we can refer the patient to a telecommunications sales representative payee in the community. Spencer expresses his agreement with this. Objective - Appearance Appearance: Well Developed/Nourished Dysmorphic Features: No Hygiene: Normal Grooming: Fairly Well Kept - Behavior Psychomotor Activities: Normal Exhibits Abnormal Movement: No - Attitude and Relatedness Attitude and Relatedness: Cooperative Eye Contact: Good - Speech Quality: Unpressured Latencies: Normal Quantity: Appropriate - Mood Patient's Decription of Mood: "Good" - Affect Observed Affect: Good Affect Consistent with: Euthymia - Thought Process Patient's Thought Process: Coherent Thought Content: No Passive Wish, No Suicidal Planning, No Homicidal Ideation, No Paranoid Ideation - Sensorium Experiencing Hallucinations: No, Sensorium is Clear Type of Hallucinations: Visual: No, Auditory: No, Command: No - Level of Consciousness Level of Consciousness: Alert Orientation: Yes Intact, Yes Orientated to Time, Yes Orientated to Place, Yes Orientated to Person - Impulse Control Impulse Control: Tenuous - Insight and Judgement Insight and Judgement: Fair - Group Participation Particating in Group Activities: Yes - Medication Management Medication Management Adherence: Yes Assessment - Assessment Merits Inpatient Hospitalization: Consolidate Improvements, Pending Safe DC Plan Inpatient DSM-IV Dx: Schizoaffective DO, bipolar type Clinical Impression: 26 y.o. single, white male with a hx of schizoaffective DO, bipolar type who was admitted involuntarily due to paranoia, lack of self care, not eating and giving his money away to [employer]. He is now homeless and had his SSI and food stamp benefits turned off. Plan - Plan Treatment Plan: Name: SPENCER BERNARD Birthdate: 1990 [id number] The patient is taking lithium 600mg PO BID but declines antipsychotics, including long acting injectables. He has become less delusional and is actively working with on d/c planning. Await placement. Continued Medication Management: Continue Outpt Medication Medications: Current Medications Acetaminophen (Tylenol Tab*) 650 mg PO Q4H PRN PRN Reason: for pain; or Temp >101 F Al Hydrox/Mg Hydrox/Simethicone (Maalox Plus*) 30 ml PO Q4H PRN PRN Reason: INDIGESTION Fluphenazine HCl (Prolixin Tab*) 5 mg PO Q6H PRN PRN Reason: AGITATION/ANXIETY/INSOMNIA [place] Carbonate ([place] Carbonate Tab*) 600 mg PO BID [facility] Last Admin: 01/17/17 08:30 Dose: 600 mg Multivitamins (Theragran Tab*) 1 tab PO DAILY [facility] Last Admin: 01/17/17 08:30 Dose: 1 tab - Discharge Plan Discharge Plan: Inpatient Hospitalization
[2017-01-18] MEDS: Lithium Carbonate TAB* 300 MG PO SCH ×2 (08:20→20:07)
[2017-01-18] MEDS: Vitamin THERAPEUTIC TAB PO SCH (08:20)
--- NOTE | 2017-01-18 11:01 | PN ---
Subjective - Subjective Service Type: 35767 Hosp care 15 min low complexity Subjective: The patient feels that the meeting with his father went well and he is future- oriented, talking about setting up services with supportive housing and ACT. He has no acute complaints. Objective - Appearance Appearance: Well Developed/Nourished Dysmorphic Features: No Hygiene: Normal Grooming: Well Kept - Behavior Psychomotor Activities: Normal Exhibits Abnormal Movement: No - Attitude and Relatedness Attitude and Relatedness: Cooperative Eye Contact: Good - Speech Quality: Unpressured Latencies: Normal Quantity: Appropriate - Mood Patient's Decription of Mood: "Good" - Affect Observed Affect: Fair Affect Consistent with: Euthymia - Thought Process Patient's Thought Process: Coherent Thought Content: No Passive Wish, No Suicidal Planning, No Homicidal Ideation, No Paranoid Ideation - Sensorium Experiencing Hallucinations: No, Sensorium is Clear Type of Hallucinations: Visual: No, Auditory: No, Command: No - Level of Consciousness Level of Consciousness: Alert Orientation: Yes Intact, Yes Orientated to Time, Yes Orientated to Place, Yes Orientated to Person - Impulse Control Impulse Control: Tenuous - Insight and Judgement Insight and Judgement: Fair - Group Participation Particating in Group Activities: Yes - Medication Management Medication Management Adherence: Yes Assessment - Assessment Merits Inpatient Hospitalization: Consolidate Improvements, Pending Safe DC Plan Inpatient DSM-IV Dx: Schizoaffective DO, bipolar type Clinical Impression: 26 y.o. single, white male with a hx of schizoaffective DO, bipolar type who was admitted involuntarily due to paranoia, lack of self care, not eating and giving his money away to [employer]. He is now homeless and had his SSI and food stamp benefits turned off. Plan - Plan Treatment Plan: Name: SPENCER BECK Birthdate: 1990 [id number] The patient is taking lithium 600mg PO BID and has become less delusional and is actively working with on d/c planning. Await placement. Continued Medication Management: Continue Outpt Medication Medications: Current Medications Acetaminophen (Tylenol Tab*) 650 mg PO Q4H PRN PRN Reason: for pain; or Temp >101 F Al Hydrox/Mg Hydrox/Simethicone (Maalox Plus*) 30 ml PO Q4H PRN PRN Reason: INDIGESTION Fluphenazine HCl (Prolixin Tab*) 5 mg PO Q6H PRN PRN Reason: AGITATION/ANXIETY/INSOMNIA [place] Carbonate ([place] Carbonate Tab*) 600 mg PO BID [facility] Last Admin: 01/18/17 08:20 Dose: 600 mg Multivitamins (Theragran Tab*) 1 tab PO DAILY [facility] Last Admin: 01/18/17 08:20 Dose: 1 tab - Discharge Plan Discharge Plan: Outpatient Follow Up Outpatient Program: ACT TEAM
[2017-01-19] MEDS: Vitamin THERAPEUTIC TAB PO SCH (08:23)
[2017-01-19] MEDS: Lithium Carbonate TAB* 300 MG PO SCH ×2 (08:23→20:19)
[2017-01-20] MEDS: Vitamin THERAPEUTIC TAB PO SCH (08:36)
[2017-01-20] MEDS: Lithium Carbonate TAB* 300 MG PO SCH ×2 (08:36→20:17)
--- NOTE | 2017-01-20 12:57 | PN ---
Subjective - Subjective Service Type: 18937 Hosp care 15 min low complexity Subjective: The patient appears stable with no new complaints or behavioral issues. He is meeting today with [facility] staff for an intake and hopes they will have housing for him as early as next week. His meeting with the ACT team went well and he is agreeable to that level of care following d/c. Objective - Appearance Appearance: Well Developed/Nourished Dysmorphic Features: No Hygiene: Normal Grooming: Fairly Well Kept - Behavior Psychomotor Activities: Normal Exhibits Abnormal Movement: No - Attitude and Relatedness Attitude and Relatedness: Cooperative Eye Contact: Good - Speech Quality: Unpressured Latencies: Normal Quantity: Appropriate - Mood Patient's Decription of Mood: "Good" - Affect Observed Affect: Good Affect Consistent with: Euthymia - Thought Process Patient's Thought Process: Coherent Thought Content: No Passive Wish, No Suicidal Planning, No Homicidal Ideation, No Paranoid Ideation - Sensorium Experiencing Hallucinations: No, Sensorium is Clear Type of Hallucinations: Visual: No, Auditory: No, Command: No - Level of Consciousness Level of Consciousness: Alert Orientation: Yes Intact, Yes Orientated to Time, Yes Orientated to Place, Yes Orientated to Person - Impulse Control Impulse Control: Tenuous - Insight and Judgement Insight and Judgement: Fair - Group Participation Particating in Group Activities: Yes - Medication Management Medication Management Adherence: Yes Assessment - Assessment Merits Inpatient Hospitalization: Consolidate Improvements, Pending Safe DC Plan Inpatient DSM-IV Dx: Schizoaffective DO, bipolar type Clinical Impression: 26 y.o. single, white male with a hx of schizoaffective DO, bipolar type who was admitted involuntarily due to paranoia, lack of self care, not eating and giving his money away to [employer]. He is now homeless and had his SSI and food stamp benefits turned off. Plan - Plan Treatment Plan: Name: SPENCER BECK Birthdate: 1990 [id number] The patient is taking lithium 600mg PO BID and has become less delusional and is actively working with SW on d/c planning. Await placement. [place]ollings level, BMP and TSH on Monday morning. Continued Medication Management: Continue Outpt Medication Medications: Current Medications Acetaminophen (Tylenol Tab*) 650 mg PO Q4H PRN PRN Reason: for pain; or Temp >101 F Al Hydrox/Mg Hydrox/Simethicone (Maalox Plus*) 30 ml PO Q4H PRN PRN Reason: INDIGESTION Fluphenazine HCl (Prolixin Tab*) 5 mg PO Q6H PRN PRN Reason: AGITATION/ANXIETY/INSOMNIA [place] Carbonate ([place] Carbonate Tab*) 600 mg PO BID [facility] Last Admin: 01/20/17 08:36 Dose: 600 mg Multivitamins (Theragran Tab*) 1 tab PO DAILY [facility] Last Admin: 01/20/17 08:36 Dose: 1 tab - Discharge Plan Discharge Plan: Outpatient Follow Up Outpatient Program: ACT team
[2017-01-21] MEDS: Vitamin THERAPEUTIC TAB PO SCH (08:15)
[2017-01-21] MEDS: Lithium Carbonate TAB* 300 MG PO SCH ×2 (08:15→20:41)
[2017-01-22] MEDS: Lithium Carbonate TAB* 300 MG PO SCH ×2 (08:28→20:47)
[2017-01-22] MEDS: Vitamin THERAPEUTIC TAB PO SCH (08:29)
[2017-01-23] MEDS: Lithium Carbonate TAB* 300 MG PO SCH ×2 (08:30→21:21)
[2017-01-23] MEDS: Vitamin THERAPEUTIC TAB PO SCH (08:30)
[2017-01-23 08:49] LABS: Calcium 9.8 mg/dL (8.6-10.3); EGFR African American 154.7 (>60); EGFR Non-African American 120.3 (>60)
[2017-01-23 09:09] LABS: TSH (Thyroid Stimulating Horm) 4.91 mcIU/mL (0.34-5.60)
[2017-01-23 09:34] LABS: Lithium 0.61 mmol/L (0.6-1.2)
--- NOTE | 2017-01-23 12:28 | PN ---
Subjective - Subjective Service Type: 90539 Hosp care 15 min low complexity Subjective: Spencer continues to be asymptomatic from mental illness and eager to be discharged to a new living situation. We await word on whether supportive housing is available. He denies SI, HI or symptoms of paranoia. Objective - Appearance Appearance: Well Developed/Nourished Dysmorphic Features: No Hygiene: Normal Grooming: Well Kept - Behavior Psychomotor Activities: Normal Exhibits Abnormal Movement: No - Attitude and Relatedness Attitude and Relatedness: Cooperative Eye Contact: Good - Speech Quality: Unpressured Latencies: Normal Quantity: Appropriate - Mood Patient's Decription of Mood: "Good" - Affect Observed Affect: Good Affect Consistent with: Euthymia - Thought Process Patient's Thought Process: Coherent Thought Content: No Passive Wish, No Suicidal Planning, No Homicidal Ideation, No Paranoid Ideation - Sensorium Experiencing Hallucinations: No, Sensorium is Clear Type of Hallucinations: Visual: No, Auditory: No, Command: No - Level of Consciousness Level of Consciousness: Alert Orientation: Yes Intact, Yes Orientated to Time, Yes Orientated to Place, Yes Orientated to Person - Impulse Control Impulse Control: Tenuous - Insight and Judgement Insight and Judgement: Fair - Group Participation Particating in Group Activities: Yes - Medication Management Medication Management Adherence: Yes Assessment - Assessment Merits Inpatient Hospitalization: Consolidate Improvements, Pending Safe DC Plan Inpatient DSM-IV Dx: Schizoaffective DO, bipolar type Clinical Impression: 26 y.o. single, white male with a hx of schizoaffective DO, bipolar type who was admitted involuntarily due to paranoia, lack of self care, not eating and giving his money away to [employer]. He is now homeless and had his SSI and food stamp benefits turned off. Plan - Plan Treatment Plan: Name: SPENCER BECK Birthdate: 1990 [id number] The patient is taking lithium 600mg PO BID and has become less delusional and is actively working with on d/c planning. Await placement. Medications: Current Medications Acetaminophen (Tylenol Tab*) 650 mg PO Q4H PRN PRN Reason: for pain; or Temp >101 F Al Hydrox/Mg Hydrox/Simethicone (Maalox Plus*) 30 ml PO Q4H PRN PRN Reason: INDIGESTION Fluphenazine HCl (Prolixin Tab*) 5 mg PO Q6H PRN PRN Reason: AGITATION/ANXIETY/INSOMNIA [place] Carbonate ([place] Carbonate Tab*) 600 mg PO BID [facility] Last Admin: 01/23/17 08:30 Dose: 600 mg Multivitamins (Theragran Tab*) 1 tab PO DAILY [facility] Last Admin: 01/23/17 08:30 Dose: 1 tab - Discharge Plan Discharge Plan: Outpatient Follow Up Outpatient Program: ACT Team Lab Results - Lab Results Lab Results: 01/23/17 08:14 Sodium 136 Potassium 4.0 Chloride 107 Carbon Dioxide 23 Anion Gap 6 BUN 20 Creatinine 0.77 Est GFR ( Amer) 154.7 Est GFR (Non-Af Amer) 120.3 BUN/Creatinine Ratio 26.0 H Glucose 87 Calcium 9.8 TSH 4.91 [place] 0.61
[2017-01-24] MEDS: Vitamin THERAPEUTIC TAB PO SCH (08:22)
[2017-01-24] MEDS: Lithium Carbonate TAB* 300 MG PO SCH ×2 (08:22→20:24)
[2017-01-25] MEDS: Lithium Carbonate TAB* 300 MG PO SCH ×2 (08:03→21:29)
[2017-01-25] MEDS: Vitamin THERAPEUTIC TAB PO SCH (08:03)
--- NOTE | 2017-01-25 12:31 | PN ---
Subjective - Subjective Service Type: 27718 Hosp care 15 min low complexity Subjective: The patient denies acute complaints and has been calm and cooperative while awaiting placement in the community. Objective - Appearance Appearance: Well Developed/Nourished Dysmorphic Features: No Hygiene: Normal Grooming: Fairly Well Kept - Behavior Psychomotor Activities: Normal Exhibits Abnormal Movement: No - Attitude and Relatedness Attitude and Relatedness: Cooperative Eye Contact: Good - Speech Quality: Unpressured Latencies: Normal Quantity: Appropriate - Mood Patient's Decription of Mood: "Good" - Affect Observed Affect: Good Affect Consistent with: Euthymia - Thought Process Patient's Thought Process: Coherent Thought Content: No Passive Wish, No Suicidal Planning, No Homicidal Ideation, No Paranoid Ideation - Sensorium Experiencing Hallucinations: No, Sensorium is Clear Type of Hallucinations: Visual: No, Auditory: No, Command: No - Level of Consciousness Level of Consciousness: Alert Orientation: Yes Intact, Yes Orientated to Time, Yes Orientated to Place, Yes Orientated to Person - Impulse Control Impulse Control: Tenuous - Insight and Judgement Insight and Judgement: Fair - Group Participation Particating in Group Activities: Yes - Medication Management Medication Management Adherence: Yes Assessment - Assessment Merits Inpatient Hospitalization: Pending Safe DC Plan Inpatient DSM-IV Dx: Schizoaffective DO, bipolar type Clinical Impression: 26 y.o. single, white male with a hx of schizoaffective DO, bipolar type who was admitted involuntarily due to paranoia, lack of self care, not eating and giving his money away to [employer]. He is now homeless and had his SSI and food stamp benefits turned off. Plan - Plan Treatment Plan: Name: SPENCER BECK Birthdate: 1990 [id number] The patient is taking lithium 600mg PO BID and has become less delusional and is actively working with on d/c planning. Await placement. Continued Medication Management: Continue Outpt Medication Medications: Current Medications Acetaminophen (Tylenol Tab*) 650 mg PO Q4H PRN PRN Reason: for pain; or Temp >101 F Al Hydrox/Mg Hydrox/Simethicone (Maalox Plus*) 30 ml PO Q4H PRN PRN Reason: INDIGESTION Fluphenazine HCl (Prolixin Tab*) 5 mg PO Q6H PRN PRN Reason: AGITATION/ANXIETY/INSOMNIA [place] Carbonate ([place] Carbonate Tab*) 600 mg PO BID [facility] Last Admin: 01/25/17 08:03 Dose: 600 mg Multivitamins (Theragran Tab*) 1 tab PO DAILY [facility] Last Admin: 01/25/17 08:03 Dose: 1 tab - Discharge Plan Discharge Plan: Outpatient Follow Up Outpatient Program: ACT Team
[2017-01-26] MEDS: Lithium Carbonate TAB* 300 MG PO SCH ×2 (08:29→20:13)
[2017-01-26] MEDS: Vitamin THERAPEUTIC TAB PO SCH (08:29)
[2017-01-27] MEDS: Vitamin THERAPEUTIC TAB PO SCH (08:31)
[2017-01-27] MEDS: Lithium Carbonate TAB* 300 MG PO SCH ×2 (08:31→20:05)
--- NOTE | 2017-01-27 14:31 | PN ---
Subjective - Subjective Service Type: 88613 Hosp care 15 min low complexity Subjective: The patient is in good spirits and looking forward to discharge to the [place] service. He agrees to continue medication and ACT services following release. Objective - Appearance Appearance: Well Developed/Nourished Dysmorphic Features: No Hygiene: Normal Grooming: Well Kept - Behavior Psychomotor Activities: Normal Exhibits Abnormal Movement: No - Attitude and Relatedness Attitude and Relatedness: Cooperative Eye Contact: Good - Speech Quality: Unpressured Latencies: Normal Quantity: Appropriate - Mood Patient's Decription of Mood: "Good" - Affect Observed Affect: Good Affect Consistent with: Euthymia - Thought Process Patient's Thought Process: Coherent Thought Content: No Passive Wish, No Suicidal Planning, No Homicidal Ideation, No Paranoid Ideation - Sensorium Experiencing Hallucinations: No, Sensorium is Clear Type of Hallucinations: Visual: No, Auditory: No, Command: No - Level of Consciousness Level of Consciousness: Alert Orientation: Yes Intact, Yes Orientated to Time, Yes Orientated to Place, Yes Orientated to Person - Impulse Control Impulse Control: Tenuous - Insight and Judgement Insight and Judgement: Fair - Group Participation Particating in Group Activities: Yes - Medication Management Medication Management Adherence: Yes Assessment - Assessment Merits Inpatient Hospitalization: Pending Safe DC Plan Inpatient DSM-IV Dx: Schizoaffective DO, bipolar type Clinical Impression: 26 y.o. single, white male with a hx of schizoaffective DO, bipolar type who was admitted involuntarily due to paranoia, lack of self care, not eating and giving his money away to [employer]. He is now homeless and had his SSI and food stamp benefits turned off. Plan - Plan Treatment Plan: Name: SPENCER BECK Birthdate: 1990 [id number] The patient is taking lithium 600mg PO BID and has become less delusional and is actively working with on d/c planning. Await placement. Continued Medication Management: Continue Outpt Medication Medications: Current Medications Acetaminophen (Tylenol Tab*) 650 mg PO Q4H PRN PRN Reason: for pain; or Temp >101 F Al Hydrox/Mg Hydrox/Simethicone (Maalox Plus*) 30 ml PO Q4H PRN PRN Reason: INDIGESTION Fluphenazine HCl (Prolixin Tab*) 5 mg PO Q6H PRN PRN Reason: AGITATION/ANXIETY/INSOMNIA [place] Carbonate ([place] Carbonate Tab*) 600 mg PO BID [facility] Last Admin: 01/27/17 08:31 Dose: 600 mg Multivitamins (Theragran Tab*) 1 tab PO DAILY [facility] Last Admin: 01/27/17 08:31 Dose: 1 tab - Discharge Plan Discharge Plan: Outpatient Follow Up Outpatient Program: ACT Team
[2017-01-28] MEDS: Vitamin THERAPEUTIC TAB PO SCH (08:27)
[2017-01-28] MEDS: Lithium Carbonate TAB* 300 MG PO SCH ×2 (08:27→21:02)
[2017-01-29] MEDS: Vitamin THERAPEUTIC TAB PO SCH (08:23)
[2017-01-29] MEDS: Lithium Carbonate TAB* 300 MG PO SCH ×2 (08:23→20:23)
[2017-01-30] MEDS: Lithium Carbonate TAB* 300 MG PO SCH ×2 (08:57→20:34)
[2017-01-30] MEDS: Vitamin THERAPEUTIC TAB PO SCH (08:57)
--- NOTE | 2017-01-30 10:50 | PN ---
Subjective - Subjective Service Type: 68671 Hosp care 15 min low complexity Subjective: The patient remains calm and cooperative. He is awaiting a meeting at 14:00 this afternoon with the [facility] for housing placement in the community. No acute issues are reportable at this time. Objective - Appearance Appearance: Well Developed/Nourished Dysmorphic Features: No Hygiene: Normal Grooming: Well Kept - Behavior Psychomotor Activities: Normal Exhibits Abnormal Movement: No - Attitude and Relatedness Attitude and Relatedness: Cooperative Eye Contact: Good - Speech Quality: Unpressured Latencies: Normal Quantity: Appropriate - Mood Patient's Decription of Mood: "Good" - Affect Observed Affect: Good Affect Consistent with: Euthymia - Thought Process Patient's Thought Process: Coherent Thought Content: No Passive Wish, No Suicidal Planning, No Homicidal Ideation, No Paranoid Ideation - Sensorium Experiencing Hallucinations: No, Sensorium is Clear Type of Hallucinations: Visual: No, Auditory: No, Command: No - Level of Consciousness Level of Consciousness: Alert Orientation: Yes Intact, Yes Orientated to Time, Yes Orientated to Place, Yes Orientated to Person - Impulse Control Impulse Control: Intact - Insight and Judgement Insight and Judgement: Good - Group Participation Particating in Group Activities: No - Medication Management Medication Management Adherence: Yes Assessment - Assessment Merits Inpatient Hospitalization: Pending Safe DC Plan Inpatient DSM-IV Dx: Schizoaffective DO, bipolar type Clinical Impression: 26 y.o. single, white male with a hx of schizoaffective DO, bipolar type who was admitted involuntarily due to paranoia, lack of self care, not eating and giving his money away to [employer]. He is now homeless and had his SSI and food stamp benefits turned off. Plan - Plan Treatment Plan: Name: SPENCER BECK Birthdate: 1990 [id number] The patient is taking lithium 600mg PO BID and has become less delusional and is actively working with on d/c planning. Await placement. Continued Medication Management: Continue Outpt Medication Medications: Current Medications Acetaminophen (Tylenol Tab*) 650 mg PO Q4H PRN PRN Reason: for pain; or Temp >101 F Al Hydrox/Mg Hydrox/Simethicone (Maalox Plus*) 30 ml PO Q4H PRN PRN Reason: INDIGESTION Fluphenazine HCl (Prolixin Tab*) 5 mg PO Q6H PRN PRN Reason: AGITATION/ANXIETY/INSOMNIA [place] Carbonate ([place] Carbonate Tab*) 600 mg PO BID [facility] Last Admin: 01/30/17 08:57 Dose: 600 mg Multivitamins (Theragran Tab*) 1 tab PO DAILY [facility] Last Admin: 01/30/17 08:57 Dose: 1 tab - Discharge Plan Discharge Plan: Outpatient Follow Up Outpatient Program: ACT Team
[2017-01-30] MEDS ORDERED: Moisturizing CREAM* 113 GM JAR TOPICAL PRN (22:53)
[2017-01-31] MEDS: Lithium Carbonate TAB* 300 MG PO SCH ×2 (08:01→20:41)
[2017-01-31] MEDS: Vitamin THERAPEUTIC TAB PO SCH (08:01)
[2017-02-01] MEDS: Lithium Carbonate TAB* 300 MG PO SCH ×2 (08:19→21:12)
[2017-02-01] MEDS: Vitamin THERAPEUTIC TAB PO SCH (08:19)
--- NOTE | 2017-02-01 12:13 | PN ---
Subjective - Subjective Service Type: 58397 Hosp care 15 min low complexity Subjective: The patient has no complaints today. He awaits placement in the community. Objective - Appearance Appearance: Well Developed/Nourished Dysmorphic Features: No Hygiene: Normal Grooming: Well Kept - Behavior Psychomotor Activities: Normal Exhibits Abnormal Movement: No - Attitude and Relatedness Attitude and Relatedness: Cooperative Eye Contact: Good - Speech Quality: Unpressured Latencies: Normal Quantity: Appropriate - Mood Patient's Decription of Mood: "Good" - Affect Observed Affect: Good Affect Consistent with: Euthymia - Thought Process Patient's Thought Process: Coherent Thought Content: No Passive Wish, No Suicidal Planning, No Homicidal Ideation, No Paranoid Ideation - Sensorium Experiencing Hallucinations: No, Sensorium is Clear Type of Hallucinations: Visual: No, Auditory: No, Command: No - Level of Consciousness Level of Consciousness: Alert Orientation: Yes Intact, Yes Orientated to Time, Yes Orientated to Place, Yes Orientated to Person - Impulse Control Impulse Control: Tenuous - Insight and Judgement Insight and Judgement: Fair - Group Participation Particating in Group Activities: No - Medication Management Medication Management Adherence: Yes Assessment - Assessment Merits Inpatient Hospitalization: Pending Safe DC Plan Inpatient DSM-IV Dx: Schizoaffective DO, bipolar type Clinical Impression: 26 y.o. single, white male with a hx of schizoaffective DO, bipolar type who was admitted involuntarily due to paranoia, lack of self care, not eating and giving his money away to [employer]. He is now homeless and had his SSI and food stamp benefits turned off. Plan - Plan Treatment Plan: Name: SPENCER BECK Birthdate: 1990 [id number] The patient is taking lithium 600mg PO BID and has become less delusional and is actively working with on d/c planning. Await placement. Continued Medication Management: Continue Outpt Medication Medications: Current Medications Acetaminophen (Tylenol Tab*) 650 mg PO Q4H PRN PRN Reason: for pain; or Temp >101 F Al Hydrox/Mg Hydrox/Simethicone (Maalox Plus*) 30 ml PO Q4H PRN PRN Reason: INDIGESTION Fluphenazine HCl (Prolixin Tab*) 5 mg PO Q6H PRN PRN Reason: AGITATION/ANXIETY/INSOMNIA [place] [employer] Carbonate ([employer] Carbonate Tab*) 600 mg PO BID [facility] Last Admin: 02/01/17 08:19 Dose: 600 mg Multi-Ingredient Ointment (Hydrocerin*) 1 applic TOPICAL TID PRN PRN Reason: DRY SKIN Multivitamins (Theragran Tab*) 1 tab PO DAILY [facility] Last Admin: 02/01/17 08:19 Dose: 1 tab - Discharge Plan Discharge Plan: Outpatient Follow Up Outpatient Program: ACT Team
[2017-02-02] MEDS: Lithium Carbonate TAB* 300 MG PO SCH ×2 (10:02→20:59)
[2017-02-02] MEDS: Vitamin THERAPEUTIC TAB PO SCH (10:02)
[2017-02-03] MEDS: Vitamin THERAPEUTIC TAB PO SCH (08:21)
[2017-02-03] MEDS: Lithium Carbonate TAB* 300 MG PO SCH ×2 (08:21→21:30)
--- NOTE | 2017-02-03 13:59 | PN ---
Subjective - Subjective Service Type: 34932 Hosp care 15 min low complexity Subjective: Patient has no complaints. Objective - Appearance Appearance: Well Developed/Nourished Dysmorphic Features: No Hygiene: Normal Grooming: Well Kept - Behavior Psychomotor Activities: Normal Exhibits Abnormal Movement: No - Attitude and Relatedness Attitude and Relatedness: Cooperative Eye Contact: Good - Speech Quality: Unpressured Latencies: Normal Quantity: Appropriate - Mood Patient's Decription of Mood: "Good" - Affect Observed Affect: Good Affect Consistent with: Euthymia - Thought Process Patient's Thought Process: Coherent Thought Content: No Passive Wish, No Suicidal Planning, No Homicidal Ideation, No Paranoid Ideation - Sensorium Experiencing Hallucinations: No, Sensorium is Clear Type of Hallucinations: Visual: No, Auditory: No, Command: No - Level of Consciousness Level of Consciousness: Alert Orientation: Yes Intact, Yes Orientated to Time, Yes Orientated to Place, Yes Orientated to Person - Impulse Control Impulse Control: Intact - Insight and Judgement Insight and Judgement: Good - Group Participation Particating in Group Activities: Yes - Medication Management Medication Management Adherence: Yes Assessment - Assessment Merits Inpatient Hospitalization: Pending Safe DC Plan Inpatient DSM-IV Dx: Schizoaffective DO, bipolar type Clinical Impression: 26 y.o. single, white male with a hx of schizoaffective DO, bipolar type who was admitted involuntarily due to paranoia, lack of self care, not eating and giving his money away to [employer]. He is now homeless and had his SSI and food stamp benefits turned off. Plan - Plan Treatment Plan: Name: SPENCER BECK Birthdate: 1990 [id number] The patient is taking lithium 600mg PO BID and has become less delusional and is actively working with on d/c planning. Await placement. Continued Medication Management: Continue Outpt Medication Medications: Current Medications Acetaminophen (Tylenol Tab*) 650 mg PO Q4H PRN PRN Reason: for pain; or Temp >101 F Al Hydrox/Mg Hydrox/Simethicone (Maalox Plus*) 30 ml PO Q4H PRN PRN Reason: INDIGESTION Fluphenazine HCl (Prolixin Tab*) 5 mg PO Q6H PRN PRN Reason: AGITATION/ANXIETY/INSOMNIA Last Admin: 02/01/17 21:12 Dose: [address] [place] Carbonate ([place] Carbonate Tab*) 600 mg PO BID [facility] Last Admin: 02/03/17 08:21 Dose: 600 mg Multi-Ingredient Ointment (Hydrocerin*) 1 applic TOPICAL TID PRN PRN Reason: DRY SKIN Last Admin: 02/02/17 18:23 Dose: 1 applic Multivitamins (Theragran Tab*) 1 tab PO DAILY [facility] Last Admin: 02/03/17 08:21 Dose: 1 tab - Discharge Plan Discharge Plan: Outpatient Follow Up Outpatient Program: ACT team
[2017-02-04 08:07] VITALS: BP 126/55
[2017-02-04] MEDS: Lithium Carbonate TAB* 300 MG PO SCH ×2 (08:20→20:34)
[2017-02-04] MEDS: Vitamin THERAPEUTIC TAB PO SCH (08:20)
[2017-02-05] MEDS: Vitamin THERAPEUTIC TAB PO SCH (08:09)
[2017-02-05] MEDS: Lithium Carbonate TAB* 300 MG PO SCH ×2 (08:09→20:14)
[2017-02-06] MEDS: Lithium Carbonate TAB* 300 MG PO SCH ×2 (08:37→20:41)
[2017-02-06] MEDS: Vitamin THERAPEUTIC TAB PO SCH (08:37)
--- NOTE | 2017-02-06 12:08 | PN ---
Subjective - Subjective Service Type: 27501 Hosp care 15 min low complexity Subjective: The patient is doing well and denies any acute symptoms or problems. Objective - Appearance Appearance: Well Developed/Nourished Dysmorphic Features: No Hygiene: Normal Grooming: Well Kept - Behavior Psychomotor Activities: Normal Exhibits Abnormal Movement: No - Attitude and Relatedness Attitude and Relatedness: Cooperative Eye Contact: Fair - Speech Quality: Unpressured Latencies: Normal Quantity: Appropriate - Mood Patient's Decription of Mood: "Fine" - Affect Observed Affect: Good Affect Consistent with: Euthymia - Thought Process Patient's Thought Process: Coherent Thought Content: No Passive Wish, No Suicidal Planning, No Homicidal Ideation, No Paranoid Ideation - Sensorium Experiencing Hallucinations: No, Sensorium is Clear Type of Hallucinations: Visual: No, Auditory: No, Command: No - Level of Consciousness Level of Consciousness: Alert Orientation: Yes Intact, Yes Orientated to Time, Yes Orientated to Place, Yes Orientated to Person - Impulse Control Impulse Control: Tenuous - Insight and Judgement Insight and Judgement: Fair - Group Participation Particating in Group Activities: No - Medication Management Medication Management Adherence: Yes Assessment - Assessment Merits Inpatient Hospitalization: Pending Safe DC Plan Inpatient DSM-IV Dx: Schizoaffective DO, bipolar type Clinical Impression: 26 y.o. single, white male with a hx of schizoaffective DO, bipolar type who was admitted involuntarily due to paranoia, lack of self care, not eating and giving his money away to [employer]. He is now homeless and had his SSI and food stamp benefits turned off. Plan - Plan Treatment Plan: Name: SPENCER BECK Birthdate: 1990 [id number] The patient is taking lithium 600mg PO BID and has become less delusional and is actively working with on d/c planning. Await placement. Continued Medication Management: Continue Outpt Medication Medications: Current Medications Acetaminophen (Tylenol Tab*) 650 mg PO Q4H PRN PRN Reason: for pain; or Temp >101 F Al Hydrox/Mg Hydrox/Simethicone (Maalox Plus*) 30 ml PO Q4H PRN PRN Reason: INDIGESTION Fluphenazine HCl (Prolixin Tab*) 5 mg PO Q6H PRN PRN Reason: AGITATION/ANXIETY/INSOMNIA Last Admin: 02/01/17 21:12 Dose: 5 mg [place] Carbonate ([place] Carbonate Tab*) 600 mg PO BID [facility] Last Admin: 02/06/17 08:37 Dose: 600 mg Multi-Ingredient Ointment (Hydrocerin*) 1 applic TOPICAL TID PRN PRN Reason: DRY SKIN Last Admin: 02/02/17 18:23 Dose: 1 applic Multivitamins (Theragran Tab*) 1 tab PO DAILY [facility] Last Admin: 02/06/17 08:37 Dose: 1 tab - Discharge Plan Discharge Plan: Outpatient Follow Up Outpatient Program: ACT Team
[2017-02-07] MEDS: Lithium Carbonate TAB* 300 MG PO SCH ×2 (09:04→20:47)
[2017-02-07] MEDS: Vitamin THERAPEUTIC TAB PO SCH (09:04)
--- NOTE | 2017-02-07 12:52 | PN ---
Subjective - Subjective Service Type: 17407 Hosp care 15 min low complexity Subjective: The patient is in good spirits and denies psychiatric symptoms. Tells me he's excited to find out that the [facility] has a respite bed for him tomorrow, meaning that he can be discharged. He denies paranoia, SI or HI. Objective - Appearance Appearance: Well Developed/Nourished Dysmorphic Features: No Hygiene: Normal Grooming: Well Kept - Behavior Psychomotor Activities: Normal Exhibits Abnormal Movement: No - Attitude and Relatedness Attitude and Relatedness: Cooperative Eye Contact: Good - Speech Quality: Unpressured Latencies: Normal Quantity: Appropriate - Mood Patient's Decription of Mood: "Great" - Affect Observed Affect: Good Affect Consistent with: Euthymia - Thought Process Patient's Thought Process: Coherent Thought Content: No Passive Wish, No Suicidal Planning, No Homicidal Ideation, No Paranoid Ideation - Sensorium Experiencing Hallucinations: No, Sensorium is Clear Type of Hallucinations: Visual: No, Auditory: No, Command: No - Level of Consciousness Orientation: Yes Intact, Yes Orientated to Time, Yes Orientated to Place, Yes Orientated to Person - Impulse Control Impulse Control: Intact - Insight and Judgement Insight and Judgement: Good - Group Participation Particating in Group Activities: Yes - Medication Management Medication Management Adherence: Yes Assessment - Assessment Merits Inpatient Hospitalization: Pending Safe DC Plan Inpatient DSM-IV Dx: Schizoaffective DO, bipolar type Clinical Impression: 26 y.o. single, white male with a hx of schizoaffective DO, bipolar type who was admitted involuntarily due to paranoia, lack of self care, not eating and giving his money away to [employer]. He is now homeless and had his SSI and food stamp benefits turned off. Plan - Plan Treatment Plan: Name: SPENCER BECK Birthdate: 1990 [id number] The patient is doing well on lithium 600mg PO BID and is set for discharge tomorrow to a community respite bed. There he will await admission into the [facility] apartment program. Follow up will be with the ACT Team. Continued Medication Management: Continue Outpt Medication Medications: Current Medications Acetaminophen (Tylenol Tab*) 650 mg PO Q4H PRN PRN Reason: for pain; or Temp >101 F Al Hydrox/Mg Hydrox/Simethicone (Maalox Plus*) 30 ml PO Q4H PRN PRN Reason: INDIGESTION Fluphenazine HCl (Prolixin Tab*) 5 mg PO Q6H PRN PRN Reason: AGITATION/ANXIETY/INSOMNIA Last Admin: 02/01/17 21:12 Dose: 5 mg [place] Carbonate ([place] Carbonate Tab*) 600 mg PO BID JESSICA Last Admin: 02/07/17 09:04 Dose: 600 mg Multi-Ingredient Ointment (Hydrocerin*) 1 applic TOPICAL TID PRN PRN Reason: DRY SKIN Last Admin: 02/02/17 18:23 Dose: 1 applic Multivitamins (Theragran Tab*) 1 tab PO DAILY JESSICA Last Admin: 02/07/17 09:04 Dose: 1 tab - Discharge Plan Discharge Plan: Outpatient Follow Up Outpatient Program: ACT Team
[2017-02-08] MEDS: Vitamin THERAPEUTIC TAB PO SCH (08:28)
[2017-02-08] MEDS: Lithium Carbonate TAB* 300 MG PO SCH (08:28)
--- NOTE | 2017-02-08 11:57 | PN ---
MHU: Group Therapy Note - Service Type Service Type: 67213 Group Psychotherapy - Cognitive Behavioral Group Therapy ( CBT):Patient was attentive and participatory in CBT programming this morning, and remained in good behavioral control. Patient expressed positive insights regarding relevant treatment interventions and goals.
--- NOTE | 2017-02-08 15:09 | DS ---
DATE OF ADMISSION: 01/09/2017. DATE OF DISCHARGE: 02/08/2017. DISCHARGE DIAGNOSES: AXIS I: Schizoaffective disorder, bipolar type. AXIS II: Deferred. AXIS III: None. AXIS IV: Moderate, housing and access to healthcare stressors. AXIS V: At the time of admission was 30 and at the time of discharge is 60. CONDITION AT THE TIME OF DISCHARGE: Stable. The patient is calm and cooperative. He is euthymic. He is endorsing none of the paranoid delusions that he presented to the the hospital with. Further ore, the acute stressor leading to hospitalization, which was homelessness, has been resolved and th e patient has been accepted for transfer to the [facility]. Thereafter, he will be residing through the [facility] at the [facility]. The patient denies suicida l or homicidal ideations. In fact, he has done so throughout this hospitalization. He has been saf e throughout the routine checks during his hospital course. He has been future oriented, indicating that he is looking forward to getting a new apartment and to following through with mental health s ervices in the community. We have had family meetings with his father and the family is in favor of the patient's discharge plan. MENTAL STATUS EXAMINATION AT THE TIME OF DISCHARGE: The patient is a young, white male, wearing eye glasses with brown hair. He appears to be clean and well- groomed. He is calm, cooperative, easy to establish a rapport with. Speech has a normal rate, tone and volume. Mood is euthymic with a fu ll affect. Thought process is linear. Thought content is goal directed and significant for his ashley bello to leave the hospital. He denies suicidal or homicidal ideations. He denies auditory or visual hallucinations and there is no evidence of psychotic thought process. Insight and judgment appear to be fair given his willingness to follow-up with outpatient treatment in the community. Cognitive ly, he is awake and alert with what would appear to be an average intellect. DISCHARGE INSTRUCTIONS TO THE PATIENT: A. Medications: He is taking [place] Carbonate 600 mg p.o. b.i.d. B. Diet: Regular. C. Activities: As tolerated. The patient is a nonsmoker. D. Follow-up care: The patient will be following up with the [facility] treatment [facility]. They will be seeing him six times per month after his discharge from our facility. HOSPITAL COURSE - PART A: Reason for admission: The patient is a 26-year-old, single, white male wi th a history of schizoaffective disorder with serial nonadherence to outpatient psychiatric treatmen t who was brought into the hospital by police due to frequently arriving a law enforcement agencies with bizarre delusional complaints. My understanding is that the patient has made false reports honorio ng stalked and persecuted to not only the [place] [employer] Department, but to the local [place] branch and the [facility] Department. When he arrived, he was agitated requiring an intramuscular i njection of antipsychotic medications. He was observed pouring water onto the floor and telling peo ple that they were not qualified to do their jobs. We were able to reach his father, Boyd booth, who lives in the [place] area and further indicated that the patient has been off his me dications for over a month. Enrico apparently believes that he is being followed around the [facility], including by 50 people at a local [facility], stating that they wanted to talk to him. He was also tel ling me at the time of admission that the local [employer] community wants his input for crimes ar ound the subject of drug dealing in the [facility]. Apparently, the patient is now homeless, being kicked out of his apartment that he shared with some students at [employer]. He blames them for this indicating that they were frequently trying to convince him that he should use drugs. One of h is trips to the [facility] Police was to inform on them. An additional concern is that he recen tly gave $6000.00 away to a [employer] fund. He also ended his disability and food stamp progra ms due to his paranoid thinking. At the time of admission, he does not have realistic thoughts abou t where he would live or how he would take care of himself. We spoke with senior customer service representative of the [facility] who indicated that he had not been regularly following up with the m and they were concerned because he was not eating. They had initiated a court order for an AOT wh ich was still being processed. When I asked the patient what he wants, he indicates that he does no t need psychiatric hospitalization, nor does he need psychiatric medications, telling me that variou s medications have made him feel either high or made him hallucinate. He is unable to give me much o f a coherent plan in terms of how he would meet his most basic needs in the community were I to disc harge him. HOSPITAL COURSE - PART B: Psychiatric treatment rendered: The patient was admitted to the [facility] where he was placed on q.30 minute checks for his own safety. We initially trie d to start a trial of Abilify, 5 mg daily; however, he refused to take this and only after some conv incing was willing to take a trial of [place]. He was started on [place] 300 mg b.i.d. and then titr ated to 600 mg b.i.d. Follow- up Cleveland level was therapeutic at 0.61. The patient had a fairly s pontaneous recovery once he was on a therapeutic dose of [place]. His paranoid ideations went away and he was much more calm, cooperative and reality focused. His father, Boyd, was able to come up from the [facility] area and assist us with discharge planning. The sense was that the patie nt would benefit from supportive housing in the community, as well as a higher level of outpatient [facility] health services. For these reasons, he was respectively referred to the [facility], as well as to the [facility] community treatment team. Unfortunately, we could not get him house d immediately in the community due to lack of availability of qualified apartments. Ultimately, he did get a bed at the [facility] which is a respite provider for our area and he will remain at this facility until he can move into his apartment in [place]. The patient is reality focused at this time. He is future oriented and he is promising to follow though with the ACT team, as well as [facility] services. [id number]/[facility] #: [id number]
== END 2017-02-08 14:30 | disposition home or self-care (01) | DRG 885 ==
LOC: ED 10:36 → BSU 15:59
PROVIDERS: ADMIT Psychiatry & Neurology Psychiatry; ATTEND Psychiatry & Neurology Psychiatry
PROC: GZHZZZZ Group Psychotherapy (ICD-10-PCS; principal; 2017-02-08)
PROC: GZ58ZZZ Individual Psychotherapy, Cognitive-Behavioral (ICD-10-PCS; 2017-02-08)
DX: F25.0 Schizoaffective disorder, bipolar type (principal); F50.9 Eating disorder, unspecified; F43.10 Post-traumatic stress disorder, unspecified; F17.210 Nicotine dependence, cigarettes, uncomplicated; Z91.14 Patient's other noncompliance with medication regimen; Z59.0 Homelessness
CPT/HCPCS: 36415; 80048; 80053; 80178; 80320; 80329; 84443; 85025; 90847; 90853; 99222; 99231; 99238; 99283; A9270-GY; G0480; J1200; J1630; J2060

== ENCOUNTER 2017-05-12 14:51 | Inpatient (IN) | payer MEDICARE, MEDICAID ==
[2017-05-12 15:28] LABS: Hematocrit 47 % (42-52); Hemoglobin 16.2 g/dl (14.0-18.0); Mean Corpuscular HGB Conc 34 g/dl (31-36); Mean Corpuscular Hemoglobin 34 pg (27-31); Mean Corpuscular Volume 98 fL (80-94); Mean Platelet Volume 8 um3 (7.4-10.4); Red Blood Count 4.82 10^6/ul (4.0-5.4); Red Cell Distribution Width 12 % (10.5-15); White Blood Count 5.9 10^3/ul (3.5-10.8)
[2017-05-12 15:44] LABS: ALT 12 U/L (7-52); AST 17 U/L (13-39); Albumin 4.2 g/dL (3.2-5.2); Alkaline Phosphatase 36 U/L (34-104); Anion Gap 5 mmol/L (2-11); BUN/Creatinine Ratio 31.9 (8-20); Blood Urea Nitrogen 29 mg/dL (6-24); CO2 Carbon Dioxide 23 mmol/L (22-32); Calcium 9.8 mg/dL (8.6-10.3); Chloride 109 mmol/L (101-111); EGFR African American 127.6 (>60); EGFR Non-African American 99.2 (>60); Globulin 2.7 g/dL (2-4); Glucose 89 mg/dL (70-100); Potassium 3.9 mmol/L (3.5-5.0); Sodium 137 mmol/L (133-145); Total Protein 6.9 g/dL (6.4-8.9)
[2017-05-12 15:52] LABS: Acetaminophen < 15 mcg/mL; Alcohol < 10 mg/dL (<10); Salicylate < 2.50 mg/dL (<30)
--- NOTE | 2017-05-12 18:59 | ED ---
Prashant Pulliam Alfonso, scribed for Rui Cheney MD on 05/12/17 at 1526 . Psychiatric Complaint - HPI Summary HPI Summary: This patient is a 26 year old male presenting to [facility] c/o flight of ideas since earlier today. He states the women who I spoke to after speaking to the [employer] said I needed to come here. Sx aggravated and alleviated by nothing. PMHX of schizophrenia and bipolar. - History Of Current Complaint Chief Complaint: EDMentalHealth Time Seen by Provider: 05/12/17 15:04 Hx Obtained From: Patient Onset/Duration: Sudden Onset, Lasting Hours - Earlier today Timing: Constant Severity Initially: Moderate Severity Currently: Moderate Aggravating Factor(s): Nothing Alleviating Factor(s): Nothing Related History: Positive For: Prior Psychiatric Issues - schizophrenia and bipolar - Allergies/Home Medications Allergies/Adverse Reactions: Allergies Allergy/AdvReac Type Severity Reaction Status Date / Time No Known Allergies Allergy Verified 11/01/16 04:42 Home Medications: Home Medications [place] Carbonate TAB* 600 mg PO BID 05/12/17 [History Confirmed 05/12/17] PMH/Surg Hx/FS Hx/Imm Hx Cardiovascular History: Denies: Hx Hypertension Sensory History: Reports: Hx Contacts or Glasses Opthamlomology History: Reports: Hx Contacts or Glasses Psychiatric History: Reports: Hx Post Traumatic Stress Disorder, Hx Inpatient Treatment, Hx Community Mental Health Tx, Hx Schizophrenia, Hx Bipolar Disorder , Other Psychiatric Issues/Disorders - Schizoeffective disorder Denies: Hx of Violent Episodes Against Others Comment Only: Hx Eating Disorder - Unable to determine from pt at time of MHE d/t disorganized thoughts Infectious Disease History: Denies: Traveled Outside the [place] in Last 30 Days - Family History Known Family History: Negative: Cardiac Disease - Social History Alcohol Use: None Hx Substance Use: No Substance Use Type: Reports: None Hx Tobacco Use: Yes Smoking Status (MU): Current Some Day Smoker Type: Cigarettes Amount Used/How Often: one PPD Review of Systems Negative: Fever Psychological: Other - Positive flight of ideas All Other Systems Reviewed And Are Negative: Yes Physical Exam Triage Information Reviewed: Yes Vital Signs On Initial Exam: Initial Vitals Temp Pulse Resp BP Pulse Ox 98.5 F 46 16 114/69 98 05/12/17 15:32 05/12/17 15:32 05/12/17 15:32 05/12/17 15:32 05/12/17 15:32 Vital Signs Reviewed: Yes Appearance: Positive: Well-Appearing, No Pain Distress Skin: Positive: Warm, Skin Color Reflects Adequate Perfusion, Dry Head/Face: Positive: Normal Head/Face Inspection Eyes: Positive: EOMI, MARLEN ENT: Positive: Normal ENT inspection Neck: Positive: Supple, Nontender Respiratory/Lung Sounds: Positive: Clear to Auscultation, Breath Sounds Present Cardiovascular: Positive: RRR Abdomen Description: Positive: Nontender, Soft Bowel Sounds: Positive: Present Musculoskeletal: Positive: Normal, Strength/ROM Intact Neurological: Positive: Normal, Sensory/Motor Intact, Alert, Oriented to Person Place, Time Psychiatric: Positive: Other - Delusional and psychotic Diagnostics - Vital Signs Vital Signs Temp Pulse Resp BP Pulse Ox 05/12/17 15:32 98.5 F 46 16 114/69 98 - Laboratory Lab Results: Lab Results 05/12/17 05/12/17 Range/Units 15:15 15:15 WBC 5.9 (3.5-10.8) 10^3/ul RBC 4.82 (4.0-5.4) 10^6/ul Hgb 16.2 (14.0-18.0) g/dl Hct 47 (42-52) % MCV 98 H (80-94) fL MCH 34 H (27-31) pg MCHC 34 (31-36) g/dl RDW 12 (10.5-15) % Plt Count 206 (150-450) 10^3/ul MPV 8 (7.4-10.4) um3 Neut % (Auto) 57.2 (38-83) % Lymph % (Auto) 32.0 (25-47) % Pitkin % (Auto) 8.0 (1-9) % Eos % (Auto) 1.8 (0-6) % Baso % (Auto) 1.0 (0-2) % Absolute Neuts (auto) 3.4 (1.5-7.7) 10^3/ul Absolute Lymphs (auto) 1.9 (1.0-4.8) 10^3/ul Absolute Monos (auto) 0.5 (0-0.8) 10^3/ul Absolute Eos (auto) 0.1 (0-0.6) 10^3/ul Absolute Basos (auto) 0.1 (0-0.2) 10^3/ul Absolute Nucleated RBC 0.01 10^3/ul Nucleated RBC % 0.1 Sodium 137 (133-145) mmol/L Potassium 3.9 (3.5-5.0) mmol/L Chloride 109 (101-111) mmol/L Carbon Dioxide 23 (22-32) mmol/L Anion Gap 5 (2-11) mmol/L BUN 29 H (6-24) mg/dL Creatinine 0.91 (0.67-1.17) mg/dL Est GFR ( Amer) 127.6 (>60) Est GFR (Non-Af Amer) 99.2 (>60) BUN/Creatinine Ratio 31.9 H (8-20) Glucose 89 (70-100) mg/dL Calcium 9.8 (8.6-10.3) mg/dL Total Bilirubin 0.50 (0.2-1.0) mg/dL AST 17 (13-39) U/L ALT 12 (7-52) U/L Alkaline Phosphatase 36 (34-104) U/L Total Protein 6.9 (6.4-8.9) g/dL Albumin 4.2 (3.2-5.2) g/dL Globulin 2.7 (2-4) g/dL Albumin/Globulin Ratio 1.6 (1-3) TSH 1.10 (0.34-5.60) mcIU/mL Salicylates < 2.50 (<30) mg/dL Acetaminophen < 15 mcg/mL Serum Alcohol < 10 (<10) mg/dL Result Diagrams: 05/12/17 15:15 05/12/17 15:15 Lab Statement: Any lab studies that have been ordered have been reviewed, and results considered in the medical decision making process. Course/Dx - Course Course Of Treatment: NO CRITICAL CARE TIME. MHE PENDING AT SHIFT CHANGE. - Differential Dx/Clinical Impression Provider Diagnosis: Mental health problem Discharge - Discharge Plan Condition: Stable Disposition: OTHER Discharge Disposition Comment: . Referrals: No Primary Care Phys,NOPCP [Primary Care Provider] - The documentation as recorded by the Prashant garcia Alfonso accurately reflects the service I personally performed and the decisions made by , Rui Cheney MD.
[2017-05-12] MEDS ORDERED: Al Hydrox/Mg Hydrox/Simet LIQ* 30 ML UDC PO PRN (21:36)
[2017-05-12] MEDS ORDERED: Acetaminophen TAB* 325 MG PO PRN (21:36)
[2017-05-12] MEDS ORDERED: Haloperidol TAB* 5 MG PO PRN (21:37)
[2017-05-13 02:50] LABS: Lithium < 0.10 mmol/L (0.6-1.2)
[2017-05-13] MEDS: Vitamin THERAPEUTIC TAB PO SCH (08:50)
--- NOTE | 2017-05-14 02:27 | HP ---
HISTORY AND PHYSICAL: DATE OF ADMISSION: 05/12/17 IDENTIFYING DATA: Enrico is a 26-year-old mentally disabled male who currently resides in a [address]. He was brought in by police on recommendation of Emergency Outreach Services and he was admitted on emergency status. SOURCE OF INFORMATION: The patient is a poor historian. This note is based on a limited interview with the patient and review of admission data and previous records. CHIEF COMPLAINT: "I have been bothered by a group of black males in the community!" HISTORY OF PRESENT ILLNESS: Enrico gave quite a confusing account of the circumstances that led to the police bringing him to this hospital. He essentially stated that he was on his way to an appointment the day before. He was being followed by a group of males. He walked to the police station to complain and the police told him that they had consulted emergency outreach services and they were told to transport him to the hospital on status and he was brought here. He was last discharged from this unit in January 2017 after he was connected with [facility] and with the ACT Team. He went off prescribed lithium somewhere at "the end of March, beginning of April because," he asserts the medication was disrupting his sleep pattern, causing him to shake uncontrollably and was preventing him from thinking clearly. He spontaneously states "I do not feel safe in this community." He reports a situation where he was having difficulty with a roommate, he stayed in a hotel, made complaints to the police and to the [employer] and eventually the roommate was removed. He talks about having made other phone calls to the [employer] to complain about various people in the community. He feels the mental health services in this community have failed him. He endorses having felt depressed with recurrent thoughts of suicide but he denies previous leonard attempt. He stays up all night, he has been isolating from others because of feeling persecuted by members of the community. He denies auditory or visual hallucination. He denies alcohol or drug use, but describes that he has taken to smoking a pack of cigarettes per day in the past month. Notes from the mental health evaluation indicates that he has been in with the ACT Team since his last discharge from this hospital in January 2017. Since he stopped taking his prescribed lithium about a month ago, he has been increasingly paranoid (having thoughts of others being out to get him) and he has been acting in manners that place him and others at risks. His ACT Team worker, Sondra, explained that about a week ago, he locked his roommate on a second floor balcony with no egress and left the apartment. The landlord realized what was happening and rescued the roommate who has since been relocated due to being at risk from the patient. The patient lives in [facility]. Yesterday, he was acting more bizarre. He was advised that [facility] was seeking an order for AOT ( assisted outpatient treatment). He went to [employer], while he was in the store he acted paranoid, not verbally communicating and glaring at others, he bought a 30-pound bag of tomatoes and exited the store he began smashing tomatoes against the windows of the store. He got in the car with Sondra and while in traffic, he tried to jump out of the car while the car was moving, then exited the vehicle into heavy traffic with disregard for his own safety. The worker expressed concern that he was not acting in a manner that would keep him safe. He did not appear to be able to care for himself on a daily basis in that his needs were greater than what was available via his current housing and treatment services. REVIEW OF PSYCHIATRIC SYMPTOMS: The patient is guarded, suspicious. He denies auditory or visual hallucinations, but he endorses paranoid persecutory delusions, ideas of reference. He was fairly disorganized in his thinking, tangential with evidence of flight of ideas. Per report, he has also been disorganized in his behavior. He endorses difficulty falling asleep. He denies racing thoughts or pressured speech or grandiosity. He denies difficulty with anxiety. He denies substance use other than tobacco use. PAST PSYCHIATRIC HISTORY: History of several previous inpatient psychiatric admissions, the most recent from December to January 2017 in this facility. He was discharged on lithium carbonate with followup with ACT Team and [facility]. He denies previous suicide attempts or any history of violence. He has a history of nonadherence with taking prescribed medications. His outpatient providers are in the process of seeking an order for assisted outpatient treatment. He has had previous trial of Depakote, Invega, risperidone, olanzapine, Abilify, Wellbutrin and Seroquel. He has undergone treatment over objection in the past. He has a history of state hospital stays. He was given diagnosis of schizoaffective disorder bipolar type. PAST MEDICAL HISTORY: He denies any active medical problems, any history of head trauma with loss of consciousness, seizures, or surgeries. ALLERGIES: No known drug allergies. FAMILY HISTORY: The patient denies knowledge of any family history of psychiatric illnesses or completed suicides. SUBSTANCE ABUSE HISTORY: He denies the use of alcohol, illicit drugs, or misuse of prescribed medications. He admits that he has started smoking a pack of cigarettes daily for the last month. SOCIAL HISTORY: The patient was an [employer] br[employer] and he moved with his family around the country. He is the oldest of 3 children and reportedly has a 25-year -old brother and 16-year-old half-sister. His parents when he was young. He was primarily raised by his father with assistance of an aunt. He graduated high school in [place], [place], where his mother lived and he attended 3 years of college at the [employer]. 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 He is currently receiving social security disability benefits. He has never been , has no children. He identified as being heterosexual. He has not been sexually active. REVIEW OF MEDICAL SYMPTOMS: Negative. PHYSICAL EXAMINATION GENERAL: He is a well-appearing 26-year-old white male who does not appear to be in any acute physical distress. He is alert and oriented x3. VITAL SIGNS: On admission, blood pressure 114/69, pulse 46, respirations 16, temperature 98.5. HEENT: Head atraumatic, normocephalic, symmetrical. Eyes: PERRLA. Tympanic membranes intact. Sclerae anicteric. Conjunctivae clear. NECK: Trachea midline, freely mobile. No cervical lymphadenopathy. No nuchal rigidity. LUNGS: Clear to auscultation bilaterally. HEART: Regular rate and rhythm. S1, S2. No murmurs, gallops, or rubs. BREASTS: No mass or discharge. ABDOMEN: Soft and nontender. No masses, organomegaly, or rebound tenderness. No scars noted. Active bowel sounds in all 4 quadrants. EXTREMITIES: No pain or limitation in the range of movement. Pulses are equal and adequate in all 4 extremities. GENITAL: Exam not performed. RECTAL: Exam not performed. NEUROLOGIC: Cranial nerves II through XII are intact. Cerebellar function intact. Muscle strength grade 5/5 in all 4 extremities. STRUCTURAL EXAM: The patient examined in both supine and upright positions. No gross AP or lateral asymmetry. Gait and movement are within normal limits. SKIN: Skin texture, turgor and pigmentation are within normal limits. LABORATORY DATA: On admission, CBC, complete metabolic panel, urine toxicology screen within normal limits. Esparto level is less than 0.01. MENTAL STATUS EXAM: Finds an averagely built 26-year-old white male with dark rimmed glasses. He is poorly groomed, dressed in hospital scrubs. He makes poor eye contact. He presents as guarded and superficially cooperative. He is noted to be restless and fidgety. He exhibits short latencies in speech. His mood is euthymic. His affect is blunted. He denies suicidal or homicidal ideation and he contracts for safety. He also denies auditory or visual hallucinations, but endorses paranoid and persecutory delusions, ideas of reference. He is tangential in his thinking and disorganized in his behavior. Insight and judgement are grossly impaired. Impulse control is good in the setting. He is alert, oriented to time, place, present. Attention, memory and concentration are all fair. Fund of knowledge is adequate. Intelligence is estimated to be in normal average range. SUMMARY: A 26-year-old man with history of poor adherence with outpatient psychiatric treatment, multiple previous inpatient psychiatric admissions, previous diagnosis of schizoaffective disorder, who was brought in by police on recommendation of [facility] and he was admitted on emergency status because of exacerbation of manic/psychotic symptoms in the setting of discontinuation of his prescribed Esparto. His medical history is noncontributory. He denies substance abuse other than tobacco smoking. Family history of psychiatric illnesses or completed suicides is not known. Stressors include nonadherence to treatment, feeling socially isolated and occupational and social support deficits. DIAGNOSTIC IMPRESSION: Schizoaffective disorder bipolar type, acute exacerbation. TREATMENT PLAN: Admit to mental health unit, 15-minute checks, full code status. Legal status is emergency. Initiate comprehensive milieu, individual and group psychotherapeutic support. Medication management will involve restarting lithium and possibly adding an atypical antipsychotic. Given the patient's history of refusing treatment, we will consider taking him to court for treatment of objection. Discharge planning will involve coordination of his aftercare with ACT Team. [id number] #: [id number] ЮЛИЯ
[2017-05-14 04:58] LABS: Urine Bilirubin Negative (Negative); Urine Glucose Negative (Negative); Urine Nitrite Negative (Negative)
[2017-05-14 05:17] LABS: Benzodiazepine Urine Screen None Detected (None Detect)
[2017-05-14] MEDS: Vitamin THERAPEUTIC TAB PO SCH (09:15)
[2017-05-14] MEDS: Lithium Carbonate TAB* 300 MG PO SCH (21:24)
[2017-05-15] MEDS: Vitamin THERAPEUTIC TAB PO SCH (09:24)
[2017-05-15] MEDS: Lithium Carbonate TAB* 300 MG PO SCH ×2 (09:24→21:24)
--- NOTE | 2017-05-15 12:20 | PN ---
[facility]: Group Therapy Note - Service Type Service Type: 07494 Group Psychotherapy - Cognitive Behavioral Therapy (CBT): Patient presents with high volume of speech that impresses as being coherent within the context of self-report, but is tangential and off topic in group context. Concerns regarding disorganization of thought are apparent.
--- NOTE | 2017-05-15 15:15 | PN ---
Subjective - Subjective Service Type: 73613 Hosp care 15 min low complexity Subjective: Spencer continues to be a management issue due to his defience, armunts, verbal threats and refusing to take any psychotropic meds. He is paranoid, pressured and irrational. Believes at least some of the female staffs have sexual motive towards him and he doesn't like to interact with them. Per Nursing he has been inappropriate with females in general. Objective - Appearance Appearance: Healthy Appearing Dysmorphic Features: No Hygiene: Mal-odorous Grooming: Disheveled - Behavior Psychomotor Activities: Abnormal-Increased - Attitude and Relatedness Attitude and Relatedness: Hostile Eye Contact: Fair - Speech Quality: Pressured Latencies: Short Quantity: Copious - Mood Patient's Decription of Mood: "Terrible" - Affect Observed Affect: Expansive - Thought Process Patient's Thought Process: Coherent, Tangential, Filght of Ideas, Circumstantial Thought Content: No Passive Wish, No Suicidal Planning, No Homicidal Ideation, No Paranoid Ideation - Sensorium Experiencing Hallucinations: No, Sensorium is Clear Type of Hallucinations: Visual: No, Auditory: No, Command: No - Level of Consciousness Level of Consciousness: Alert Orientation: Yes Intact, Yes Orientated to Time, Yes Orientated to Place, Yes Orientated to Person - Impulse Control Impulse Control: Tenuous - Insight and Judgement Insight and Judgement: Impaired - Group Participation Particating in Group Activities: No - Medication Management Medication Management Adherence: No Assessment - Assessment Merits Inpatient Hospitalization: For Immediate Safety, For Stabilization Plan - Plan Treatment Plan: Name: SPENCER BECK Birthdate: 1990 [id number] Continued Medication Management: Continue Outpt Medication Medications: Current Medications Acetaminophen (Tylenol Tab*) 650 mg PO Q4H PRN PRN Reason: PAIN or TEMP > 101 F Al Hydrox/Mg Hydrox/Simethicone (Maalox Plus*) 30 ml PO Q4H PRN PRN Reason: INDIGESTION Haloperidol (Haldol Tab*) 5 mg PO Q4H PRN PRN Reason: AGITATION [place] Carbonate ([place] Carbonate Tab*) 600 mg PO BID [facility] Last Admin: 05/15/17 09:24 Dose: Not Given Multivitamins (Theragran Tab*) 1 tab PO DAILY [facility] Last Admin: 05/15/17 09:24 Dose: Not Given - Discharge Plan Discharge Plan: Outpatient Follow Up Outpatient Program: [facility]
[2017-05-16] MEDS: Lithium Carbonate TAB* 300 MG PO SCH ×2 (09:56→21:59)
[2017-05-16] MEDS: Vitamin THERAPEUTIC TAB PO SCH (09:56)
--- NOTE | 2017-05-16 16:43 | PN ---
Subjective - Subjective Service Type: 69183 Hosp care 15 min low complexity Subjective: Spencer appears cheerful today. Speaking spontaniously, pleasent and calm. Thoughts are somewhat organized then yesterday although still pressured. Personal hygiene and grooming still poor. Still refusing meds. Objective - Appearance Appearance: Healthy Appearing Dysmorphic Features: No Hygiene: Mal-odorous Grooming: Disheveled - Behavior Psychomotor Activities: Abnormal-Increased Exhibits Abnormal Movement: No - Attitude and Relatedness Attitude and Relatedness: Superficially Cooperative Eye Contact: Fair - Speech Quality: Pressured Latencies: Short Quantity: Terse - Mood Patient's Decription of Mood: "Fine" - Affect Observed Affect: Expansive - Thought Process Patient's Thought Process: Loose Associations, Tangential, Filght of Ideas, Circumstantial Thought Content: No Passive Wish, No Suicidal Planning, No Homicidal Ideation, No Paranoid Ideation - Sensorium Experiencing Hallucinations: No, Sensorium is Clear Type of Hallucinations: Visual: No, Auditory: No, Command: No - Level of Consciousness Level of Consciousness: Alert Orientation: Yes Intact, Yes Orientated to Time, Yes Orientated to Place, Yes Orientated to Person - Impulse Control Impulse Control: Tenuous - Insight and Judgement Insight and Judgement: Poor - Group Participation Particating in Group Activities: No - Medication Management Medication Management Adherence: No Assessment - Assessment Merits Inpatient Hospitalization: For Immediate Safety, For Stabilization, Pending Safe DC Plan Inpatient DSM-IV Dx: Unspecified Bipolar d/o Clinical Impression: 26 y/o with an established diagnosis of bipolar d/o being repeatedly rehospitalized in the context of noadherence to treatments. Plan - Plan Treatment Plan: Name: SPENCER BECK Birthdate: 1990 [id number] Continued Medication Management: Continue Outpt Medication Medications: Current Medications Acetaminophen (Tylenol Tab*) 650 mg PO Q4H PRN PRN Reason: PAIN or TEMP > 101 F Al Hydrox/Mg Hydrox/Simethicone (Maalox Plus*) 30 ml PO Q4H PRN PRN Reason: INDIGESTION Haloperidol (Haldol Tab*) 5 mg PO Q4H PRN PRN Reason: AGITATION [place] Carbonate ([place] Carbonate Tab*) 600 mg PO BID [facility] Last Admin: 05/16/17 09:56 Dose: Not Given Multivitamins (Theragran Tab*) 1 tab PO DAILY [facility] Last Admin: 05/16/17 09:56 Dose: Not Given - Discharge Plan Discharge Plan: Outpatient Follow Up Outpatient Program: [facility]
[2017-05-16] MEDS ORDERED: chlorproMAZINE TAB* 100 MG PO ONE (22:16)
[2017-05-16] MEDS ORDERED: diPHENhydraMINE PO* 50 MG PO ONE (22:16)
[2017-05-16] MEDS ORDERED: chlorproMAZINE TAB* 100 MG ONE (22:18)
[2017-05-16] MEDS ORDERED: chlorproMAZINE INJ* 25 MG/ML 2 ML (50 MG) ONE (22:19)
[2017-05-16] MEDS ORDERED: diPHENhydraMINE PO* 50 MG ONE (22:20)
[2017-05-16] MEDS ORDERED: diPHENhydraMINE IV* 50 MG/ML 1 ml VIAL (BENADRYL) ONE (22:20)
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
[2017-05-17] MEDS: Vitamin THERAPEUTIC TAB PO SCH (11:55)
[2017-05-17] MEDS: Lithium Carbonate TAB* 300 MG PO SCH ×2 (11:55→23:30)
[2017-05-17] MEDS ORDERED: chlorproMAZINE INJ* 25 MG/ML 2 ML (50 MG) IM ONE (16:10)
[2017-05-17] MEDS ORDERED: LORazepam INJ* 2 MG/ML 1 ML VIAL IM ONE (16:10)
[2017-05-17] MEDS ORDERED: LORazepam INJ* 2 MG/ML 1 ML VIAL ONE (16:25)
[2017-05-17] MEDS ORDERED: chlorproMAZINE INJ* 25 MG/ML 2 ML (50 MG) ONE (16:25)
[2017-05-18] MEDS: Lithium Carbonate TAB* 300 MG PO SCH ×3 (09:28→19:59)
[2017-05-18] MEDS: Vitamin THERAPEUTIC TAB PO SCH (09:28)
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
[2017-05-19] MEDS ORDERED: chlorproMAZINE TAB* 100 MG PO ONE (04:15)
[2017-05-19] MEDS ORDERED: LORazepam TAB(*) 1 MG PO ONE (04:15)
[2017-05-19] MEDS ORDERED: LORazepam INJ* 2 MG/ML 1 ML VIAL ONE (04:20)
[2017-05-19] MEDS ORDERED: chlorproMAZINE INJ* 25 MG/ML 2 ML (50 MG) ONE (04:20)
[2017-05-19] MEDS ORDERED: LORazepam TAB(*) 1 MG ONE (04:22)
[2017-05-19] MEDS ORDERED: chlorproMAZINE TAB* 50 MG ONE (04:23)
[2017-05-19] MEDS: Lithium Carbonate TAB* 300 MG PO SCH ×2 (10:48→20:35)
[2017-05-19] MEDS: Vitamin THERAPEUTIC TAB PO SCH (10:48)
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
[2017-05-20] MEDS: Lithium Carbonate TAB* 300 MG PO SCH ×2 (09:38→20:27)
[2017-05-20] MEDS: Vitamin THERAPEUTIC TAB PO SCH (09:38)
[2017-05-21] MEDS: Moisturizing CREAM* 113 GM JAR TOPICAL SCH ×5 (01:30→20:40)
[2017-05-21] MEDS: Lithium Carbonate TAB* 300 MG PO SCH ×2 (09:16→20:38)
[2017-05-21] MEDS: Vitamin THERAPEUTIC TAB PO SCH (09:16)
[2017-05-22] MEDS: Lithium Carbonate TAB* 300 MG PO SCH ×3 (09:31→21:13)
[2017-05-22] MEDS: Moisturizing CREAM* 113 GM JAR TOPICAL SCH ×4 (09:32→21:13)
[2017-05-22] MEDS: Vitamin THERAPEUTIC TAB PO SCH (09:32)
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
[2017-05-23] MEDS ORDERED: Paliperidone SUSTENNA* 234 MG/1.5 ML IM ONE (10:15)
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
[2017-05-23] MEDS: Vitamin THERAPEUTIC TAB PO SCH (11:05)
[2017-05-23] MEDS: Lithium Carbonate TAB* 300 MG PO SCH ×2 (11:05→20:22)
[2017-05-23] MEDS: Moisturizing CREAM* 113 GM JAR TOPICAL SCH ×3 (11:05→20:22)
[2017-05-24] MEDS: Moisturizing CREAM* 113 GM JAR TOPICAL SCH ×3 (11:07→20:48)
[2017-05-24] MEDS: Vitamin THERAPEUTIC TAB PO SCH (11:07)
[2017-05-24] MEDS: Lithium Carbonate TAB* 300 MG PO SCH (11:07)
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
[2017-05-25 08:58] LABS: HDL Cholesterol 31.5 mg/dL
[2017-05-25] MEDS: Moisturizing CREAM* 113 GM JAR TOPICAL SCH ×3 (09:14→20:33)
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
[2017-05-26] MEDS: Moisturizing CREAM* 113 GM JAR TOPICAL SCH ×3 (08:37→20:12)
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
[2017-05-27] MEDS: Moisturizing CREAM* 113 GM JAR TOPICAL SCH ×3 (10:04→22:40)
[2017-05-28] MEDS: Moisturizing CREAM* 113 GM JAR TOPICAL SCH ×3 (09:54→22:53)
[2017-05-28] MEDS ORDERED: Paliperidone SUSTENNA* 156 MG/1 ML IM ONE (10:38)
[2017-05-29 07:32] VITALS: BP 123/64
[2017-05-29] MEDS: Moisturizing CREAM* 113 GM JAR TOPICAL SCH ×2 (09:53→13:12)
--- NOTE | 2017-05-29 13:53 | PN ---
[facility]: Group Therapy Note - Service Type Service Type: [id number] Group Psychotherapy - Cognitive Behavioral Group Therapy ( CBT):Patient was attentive and participatory in CBT programming this morning, and remained in good behavioral control. Patient expressed positive insights regarding relevant treatment interventions and goals.
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
== END 2017-05-29 13:55 | disposition home or self-care (01) | DRG 885 ==
LOC: ED 14:51 → BSU 20:56
PROVIDERS: ADMIT Psychiatry & Neurology Psychiatry; ATTEND Psychiatry & Neurology Psychiatry
PROC: GZHZZZZ Group Psychotherapy (ICD-10-PCS; principal; 2017-05-12)
DX: F25.0 Schizoaffective disorder, bipolar type (principal); F50.9 Eating disorder, unspecified; F79 Unspecified intellectual disabilities; Z91.14 Patient's other noncompliance with medication regimen; F43.10 Post-traumatic stress disorder, unspecified; F17.210 Nicotine dependence, cigarettes, uncomplicated
CPT/HCPCS: 36415; 80053; 80061; 80178; 80307; 80320; 80329; 81003; 83036; 84443; 85025; 90853; 99222; 99231; 99238; A9270-GY; G0480; J1200; J2060; J2426

== ENCOUNTER 2017-11-03 12:19 | Inpatient (IN) | payer MEDICARE, MEDICAID ==
[2017-11-03] MEDS ORDERED: LORazepam TAB(*) 1 MG PO ONE (12:43)
[2017-11-03] MEDS ORDERED: Triamcinolone 0.1% CREAM (NF) 15 GM TUBE TOPICAL ONE (12:44)
[2017-11-03 13:28] LABS: ABS Basophils 0 10^3/ul (0-0.2); ABS Eosinophils 0.1 10^3/ul (0-0.6); ABS Lymphocytes 1.8 10^3/ul (1.0-4.8); ABS Monocytes 0.8 10^3/ul (0-0.8); ABS Neutrophils 4.5 10^3/ul (1.5-7.7); ABS Nucleated RBC 0 10^3/ul; Eosinophil % 0.8 % (0-6); Hematocrit 47 % (42-52); Hemoglobin 16.5 g/dl (14.0-18.0); Mean Corpuscular HGB Conc 35 g/dl (31-36); Mean Corpuscular Hemoglobin 33 pg (27-31); Mean Corpuscular Volume 94 fL (80-94); Mean Platelet Volume 8 um3 (7.4-10.4); Nucleated Red Blood Cells % 0; Platelet Count 243 10^3/ul (150-450); Red Cell Distribution Width 12 % (10.5-15); White Blood Count 7.1 10^3/ul (3.5-10.8)
[2017-11-03 13:43] LABS: EGFR Non-African American 85.4 (>60)
[2017-11-03] MEDS ORDERED: Al Hydrox/Mg Hydrox/Simet LIQ* 30 ML UDC PO PRN (14:22)
[2017-11-03] MEDS ORDERED: Acetaminophen TAB* 325 MG PO PRN (14:22)
[2017-11-03] MEDS ORDERED: Haloperidol TAB* 5 MG PO PRN (14:24)
[2017-11-03] MEDS ORDERED: LORazepam TAB(*) 1 MG PO PRN (14:24)
[2017-11-03] MEDS ORDERED: Nicotine Inhaler* 10 MG AMP INH PRN (14:25)
[2017-11-03] MEDS ORDERED: Nicotine GUM* 2 MG PO PRN (14:25)
[2017-11-03] MEDS ORDERED: Mouth Piece, Nicotine* 1 EACH CARTRIDGE INH ONE (15:00)
[2017-11-03] MEDS: Ziprasidone * 20 MG CAP (generic Geodon) PO SCH (19:01)
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
--- NOTE | 2017-11-03 22:52 | ED ---
Barrie Pulliam Stephanie, scribed for Aleksandar Boyd MD on 11/03/17 at 1318 . Psychiatric Complaint - HPI Summary HPI Summary: A 27 y/o M BIB police with c/o paranoia that began within the past week. He states that he has had recent conversations with the [facility] and [employer]. Pt has difficulties with hearing. Symptoms include sleep disturbances that are described as erratic but mostly sufficient. He describes his experience as an anomaly of thought. He says that the thoughts he has been having were coming from the external environment. He says he has mental and auditory turrets described as a struggle with responsibility. He was an inpatient at [facility] mental health services 3 times in the past. He denies being a threat to himself or others. He reports a recent attempt of suicide and felt anxious in ER previously. He denies history of diabetes, hypertension, and other pulmonary conditions. - History Of Current Complaint Chief Complaint: EDMentalHealth Time Seen by Provider: 11/03/17 12:22 Hx Obtained From: Patient Onset/Duration: Lasting Days, Still Present Timing: Constant Alleviating Factor(s): Nothing Associated Signs And Symptoms: Positive: Paranoid Behavior, Sleep Disturbance Related History: Positive For: Prior Psychiatric Issues - Bipolar disorder - Allergies/Home Medications Allergies/Adverse Reactions: Allergies Allergy/AdvReac Type Severity Reaction Status Date / Time No Known Allergies Allergy Verified 05/13/17 13:39 PMH/Surg Hx/FS Hx/Imm Hx Previously Healthy: No Cardiovascular History: Denies: Hx Hypertension Sensory History: Reports: Hx Contacts or Glasses Denies: Hx Hearing Aid Opthamlomology History: Reports: Hx Contacts or Glasses EENT History: Reports: Hx Auditory Problems Psychiatric History: Reports: Hx Post Traumatic Stress Disorder, Hx Inpatient Treatment, Hx Community Mental Health Tx, Hx Schizophrenia, Hx Bipolar Disorder , Other Psychiatric Issues/Disorders - Schizoeffective disorder Denies: Hx of Violent Episodes Against Others Comment Only: Hx Eating Disorder - Unable to determine from pt at time of MHE d/t disorganized thoughts Infectious Disease History: Denies: Traveled Outside the [place] in Last 30 Days - Family History Known Family History: Negative: Cardiac Disease, Hypertension, Diabetes - Social History Alcohol Use: None Hx Substance Use: Yes - marijuana Substance Use Type: Reports: None Hx Tobacco Use: Yes Smoking Status (MU): Current Some Day Smoker Type: Cigarettes Amount Used/How Often: one PPD Review of Systems Negative: Fever Positive: Other - paranoid All Other Systems Reviewed And Are Negative: Yes Physical Exam - Summary Physical Exam Summary: Appearance: Well appearing, no pain distress Skin: warm, dry, eczematous changes of both hands. Head/face: normal Eyes: EOMI, MARLEN ENT: normal Neck: supple, non-tender Respiratory: CTA, breath sounds present Cardiovascular: RRR, pulses symmetrical Abdomen: non-tender, soft Bowel: present Musculoskeletal: normal, strength/ROM intact Neuro: normal, sensory motor intact, A&Ox3 Psych: He is agitated and paranoid. He has positive symptoms: auditory hallucination, flight of ideas, no recorded present SI or HI. Triage Information Reviewed: Yes Vital Signs On Initial Exam: Initial Vitals Temp Pulse Resp BP Pulse Ox 37.4 C 88 18 157/77 100 11/03/17 12:19 11/03/17 12:19 11/03/17 12:19 11/03/17 12:19 11/03/17 12:19 Vital Signs Reviewed: Yes Diagnostics - Vital Signs Vital Signs Temp Pulse Resp BP Pulse Ox 11/03/17 12:19 37.4 C 88 18 157/77 100 - Laboratory Lab Results: Lab Results 11/03/17 11/03/17 Range/Units 13:17 13:17 WBC 7.1 (3.5-10.8) 10^3/ul RBC 5.00 (4.0-5.4) 10^6/ul Hgb 16.5 (14.0-18.0) g/dl Hct 47 (42-52) % MCV 94 (80-94) fL MCH 33 H (27-31) pg MCHC 35 (31-36) g/dl RDW 12 (10.5-15) % Plt Count 243 (150-450) 10^3/ul MPV 8 (7.4-10.4) um3 Neut % (Auto) 62.5 (38-83) % Lymph % (Auto) 25.0 (25-47) % Bradley % (Auto) 11.1 H (1-9) % Eos % (Auto) 0.8 (0-6) % Baso % (Auto) 0.6 (0-2) % Absolute Neuts (auto) 4.5 (1.5-7.7) 10^3/ul Absolute Lymphs (auto) 1.8 (1.0-4.8) 10^3/ul Absolute Monos (auto) 0.8 (0-0.8) 10^3/ul Absolute Eos (auto) 0.1 (0-0.6) 10^3/ul Absolute Basos (auto) 0 (0-0.2) 10^3/ul Absolute Nucleated RBC 0 10^3/ul Nucleated RBC % 0 Sodium 137 (133-145) mmol/L Potassium 3.6 (3.5-5.0) mmol/L Chloride 105 (101-111) mmol/L Carbon Dioxide 20 L (22-32) mmol/L Anion Gap 12 H (2-11) mmol/L BUN 16 (6-24) mg/dL Creatinine 1.03 (0.67-1.17) mg/dL Est GFR ( Amer) 109.8 (>60) Est GFR (Non-Af Amer) 85.4 (>60) BUN/Creatinine Ratio 15.5 (8-20) Glucose 83 (70-100) mg/dL Calcium 9.8 (8.6-10.3) mg/dL Total Bilirubin 0.80 (0.2-1.0) mg/dL AST 32 (13-39) U/L ALT 16 (7-52) U/L Alkaline Phosphatase 62 (34-104) U/L Total Protein 7.7 (6.4-8.9) g/dL Albumin 4.7 (3.2-5.2) g/dL Globulin 3.0 (2-4) g/dL Albumin/Globulin Ratio 1.6 (1-3) TSH 1.69 (0.34-5.60) mcIU/mL Salicylates < 2.50 (<30) mg/dL Acetaminophen < 15 mcg/mL Serum Alcohol < 10 (<10) mg/dL Result Diagrams: 11/03/17 13:17 11/03/17 13:17 Lab Statement: Any lab studies that have been ordered have been reviewed, and results considered in the medical decision making process. Course/Dx - Course Course Of Treatment: Pt with many positive symptoms and gives the feel of a potentially dangerous person due to his psychosis. Medical eval was performed and he was cleared for MH eval. He was accepted for admission and did so in stable condition. - Differential Dx/Clinical Impression Differential Diagnosis/HQI/PQRI: Positive: Acute Psychosis Provider Diagnosis: Schizoaffective disorder, bipolar type, Acute psychosis, Non compliance w medication regimen Discharge - Discharge Plan Condition: Stable Disposition: ADMITTED TO [facility] The documentation as recorded by the Barrie garcia Stephanie accurately reflects the service I personally performed and the decisions made by , Aleksandar Boyd MD.
[2017-11-04] MEDS: Multivitamins/Minerals TAB PO SCH (08:16)
[2017-11-04] MEDS: Ziprasidone * 20 MG CAP (generic Geodon) PO SCH ×2 (08:17→20:21)
--- NOTE | 2017-11-04 17:15 | PN ---
Subjective - Subjective Subjective: "I feel well, I slept a lot last night a today." He denies manic or psychotic symptoms, denies side effects from prescribed Ziprasidone. Per staff, he is visible in the milieu and adherent to unit's routines. Objective - Appearance Appearance: Healthy Appearing Dysmorphic Features: No Hygiene: Normal Grooming: Well Kept - Behavior Psychomotor Activities: Normal Exhibits Abnormal Movement: No - Attitude and Relatedness Attitude and Relatedness: Cooperative Eye Contact: Fair - Speech Quality: Unpressured Latencies: Normal Quantity: Appropriate - Mood Patient's Decription of Mood: better - Affect Observed Affect: Fair Affect Consistent with: Euthymia - Thought Process Patient's Thought Process: Coherent, Impoverished Thought Content: No Passive Wish, No Suicidal Planning, No Homicidal Ideation, No Paranoid Ideation - Sensorium Experiencing Hallucinations: No, Sensorium is Clear - Level of Consciousness Level of Consciousness: Alert Orientation: Yes Intact - Impulse Control Impulse Control: Intact - Insight and Judgement Insight and Judgement: Poor - Group Participation Particating in Group Activities: Yes - Medication Management Medication Management Adherence: Yes Assessment - Assessment Merits Inpatient Hospitalization: Consolidate Improvements, For Discharge Planning Inpatient DSM-IV Dx: Schizoaffective disorder, bipolar type; Clinical Impression: Stabilizing in this structured setting with improvements in previous manic/ psychotic symptoms, tolerating trial of Ziprasidone. He needs continued admission for consolidation. Plan - Plan Treatment Plan: Name: SPENCER BECK Birthdate: 1990 [id number] Medications: Current Medications Acetaminophen (Tylenol Tab*) 650 mg PO Q4H PRN PRN Reason: for pain; or Temp >101 F Al Hydrox/Mg Hydrox/Simethicone (Maalox Plus*) 30 ml PO Q4H PRN PRN Reason: INDIGESTION Haloperidol (Haldol Tab*) 5 mg PO Q6H PRN PRN Reason: AGITATION Lorazepam (Ativan Tab(*)) 2 mg PO Q6H PRN PRN Reason: ANXIETY Multivitamins/Minerals (Theragran/Minerals Tab*) 1 tab PO DAILY JESSICA Last Admin: 11/04/17 08:16 Dose: 1 tab Nicotine (Nicotine Inhaler*) 10 mg INH Q2H PRN PRN Reason: CRAVING Nicotine Polacrilex (Nicotine Gum*) 2 mg PO Q2H PRN PRN Reason: CRAVING Ziprasidone (Geodon (Generic) *) 60 mg PO BID JESSICA Last Admin: 11/04/17 08:17 Dose: 60 mg - Discharge Plan Discharge Plan: Outpatient Follow Up Outpatient Program: [facility]
[2017-11-05] MEDS: Ziprasidone * 20 MG CAP (generic Geodon) PO SCH ×2 (08:52→21:47)
[2017-11-05] MEDS: Multivitamins/Minerals TAB PO SCH (08:53)
[2017-11-06] MEDS: Multivitamins/Minerals TAB PO SCH (08:32)
[2017-11-06] MEDS: Ziprasidone * 20 MG CAP (generic Geodon) PO SCH ×2 (08:32→20:38)
--- NOTE | 2017-11-06 17:03 | PN ---
Subjective - Subjective Subjective: "I am doing well still!" He reports sustained improvement in sleep, denies manic or psychotic symptoms, denies side effects from prescribed Ziprasidone. Per staff, he remains adherent to unit's routines. Objective - Appearance Appearance: Healthy Appearing Dysmorphic Features: No Hygiene: Normal Grooming: Well Kept - Behavior Psychomotor Activities: Normal Exhibits Abnormal Movement: No - Attitude and Relatedness Attitude and Relatedness: Cooperative Eye Contact: Fair - Speech Quality: Unpressured Latencies: Normal Quantity: Appropriate - Mood Patient's Decription of Mood: "Okay" - Affect Observed Affect: Fair Affect Consistent with: Euthymia - Thought Process Patient's Thought Process: Coherent, Goal Directed Thought Content: No Passive Wish, No Suicidal Planning, No Homicidal Ideation, No Paranoid Ideation - Sensorium Experiencing Hallucinations: No, Sensorium is Clear - Level of Consciousness Level of Consciousness: Alert Orientation: Yes Intact - Impulse Control Impulse Control: Intact - Insight and Judgement Insight and Judgement: Fair - Group Participation Particating in Group Activities: Yes - Medication Management Medication Management Adherence: Yes Assessment - Assessment Merits Inpatient Hospitalization: Consolidate Improvements, For Discharge Planning Inpatient DSM-IV Dx: Schizoaffective disorder, bipolar type; Clinical Impression: Stabilizing in this structured setting with improvements in previous manic/ psychotic symptoms, tolerating trial of Ziprasidone. He needs continued admission for consolidation. Plan - Plan Treatment Plan: Name: SPENCER BECK Birthdate: 1990 [id number] Medications: Current Medications Acetaminophen (Tylenol Tab*) 650 mg PO Q4H PRN PRN Reason: for pain; or Temp >101 F Al Hydrox/Mg Hydrox/Simethicone (Maalox Plus*) 30 ml PO Q4H PRN PRN Reason: INDIGESTION Haloperidol (Haldol Tab*) 5 mg PO Q6H PRN PRN Reason: AGITATION Lorazepam (Ativan Tab(*)) 2 mg PO Q6H PRN PRN Reason: ANXIETY Multivitamins/Minerals (Theragran/Minerals Tab*) 1 tab PO DAILY [facility] Last Admin: 11/06/17 08:32 Dose: 1 tab Nicotine (Nicotine Inhaler*) 10 mg INH Q2H PRN PRN Reason: CRAVING Nicotine Polacrilex (Nicotine Gum*) 2 mg PO Q2H PRN PRN Reason: CRAVING Ziprasidone (Geodon (Generic) *) 60 mg PO BID JESSICA Last Admin: 11/06/17 08:32 Dose: 60 mg - Discharge Plan Discharge Plan: Outpatient Follow Up Outpatient Program: [facility]
[2017-11-07] MEDS: Ziprasidone * 20 MG CAP (generic Geodon) PO SCH ×2 (08:17→20:09)
[2017-11-07] MEDS: Multivitamins/Minerals TAB PO SCH (08:17)
--- NOTE | 2017-11-07 12:06 | PN ---
[facility]: Group Therapy Note - Service Type Service Type: [id number] Group Psychotherapy
--- NOTE | 2017-11-07 12:13 | PN ---
Subjective - Subjective Date of Service: 11/07/17 Service Type: [id number] Hosp care 15 min low complexity Subjective: pSencer is tolerating ziprasidone well and has not demonstrated any psychotic symptoms over the weekend. I spoke with the leader of his ACT Team, Esme Loaiza ([phone]), who is understandably concerned about his continued tendency to self-discontinue psychotropic medications. At any rate, Spencer denies SI, HI, AH or VH. Objective - Appearance Appearance: Well Developed/Nourished Dysmorphic Features: No Hygiene: Normal Grooming: Well Kept - Behavior Psychomotor Activities: Normal Exhibits Abnormal Movement: No - Attitude and Relatedness Attitude and Relatedness: Cooperative Eye Contact: Fair - Speech Quality: Unpressured Latencies: Normal Quantity: Appropriate - Mood Patient's Decription of Mood: "Good" - Affect Observed Affect: Good Affect Consistent with: Euthymia - Thought Process Patient's Thought Process: Coherent Thought Content: No Passive Wish, No Suicidal Planning, No Homicidal Ideation, No Paranoid Ideation - Sensorium Experiencing Hallucinations: No, Sensorium is Clear Type of Hallucinations: Visual: No, Auditory: No, Command: No - Level of Consciousness Level of Consciousness: Alert Orientation: No Intact, No Orientated to Time, No Orientated to Place, No Orientated to Person - Impulse Control Impulse Control: Tenuous - Insight and Judgement Insight and Judgement: Fair - Group Participation Particating in Group Activities: Yes - Medication Management Medication Management Adherence: Yes Assessment - Assessment Merits Inpatient Hospitalization: Consolidate Improvements, Pending Safe DC Plan Inpatient DSM-IV Dx: Schizoaffective disorder, bipolar type; Clinical Impression: 27 y.o. single, white male with a history of schizoaffective DO, bipolar type brought in by EMS on a 9.45 by the ACT team due to paranoid, agitated and bizarre behavior in the community, again related to serial non-adherence with oral medications. Plan - Plan Treatment Plan: Name: SPENCER BECK Birthdate: 1990 [id number] We have started a trial of ziprasidone 60mg PO BID which he is tolerating well. Psychosis is improving. Target , 11/09, for discharge to ACT Team. Continued Medication Management: Start Medication Medications: Current Medications Acetaminophen (Tylenol Tab*) 650 mg PO Q4H PRN PRN Reason: for pain; or Temp >101 F Al Hydrox/Mg Hydrox/Simethicone (Maalox Plus*) 30 ml PO Q4H PRN PRN Reason: INDIGESTION Haloperidol (Haldol Tab*) 5 mg PO Q6H PRN PRN Reason: AGITATION Lorazepam (Ativan Tab(*)) 2 mg PO Q6H PRN PRN Reason: ANXIETY Multivitamins/Minerals (Theragran/Minerals Tab*) 1 tab PO DAILY [facility] Last Admin: 11/07/17 08:17 Dose: 1 tab Nicotine (Nicotine Inhaler*) 10 mg INH Q2H PRN PRN Reason: CRAVING Nicotine Polacrilex (Nicotine Gum*) 2 mg PO Q2H PRN PRN Reason: CRAVING Ziprasidone (Geodon (Generic) *) 60 mg PO BID [facility] Last Admin: 11/07/17 08:17 Dose: 60 mg - Discharge Plan Discharge Plan: Inpatient Hospitalization
[2017-11-08] MEDS: Ziprasidone * 20 MG CAP (generic Geodon) PO SCH ×2 (08:04→20:07)
[2017-11-08] MEDS: Multivitamins/Minerals TAB PO SCH (08:04)
--- NOTE | 2017-11-08 11:46 | PN ---
Subjective - Subjective Date of Service: 11/08/17 Service Type: 89614 Hosp care 15 min low complexity Subjective: Spencer is appropriate in speech and behavior today, showing contrition regarding the incident with a [facility] staffer that led to this hospitalization. He wrote her and her family an apology note that shows candid remorse for stalking [place] the mall and attributes this behavior rightly to symptoms of his mental illness. He is adherent with medications and social and engaged on the milieu. He denies psychotic thoughts, SI or HI. Objective - Appearance Appearance: Well Developed/Nourished Dysmorphic Features: No Hygiene: Normal Grooming: Well Kept - Behavior Psychomotor Activities: Normal Exhibits Abnormal Movement: No - Attitude and Relatedness Attitude and Relatedness: Cooperative Eye Contact: Fair - Speech Quality: Unpressured Latencies: Normal Quantity: Appropriate - Mood Patient's Decription of Mood: "Good" - Affect Observed Affect: Good Affect Consistent with: Euthymia - Thought Process Patient's Thought Process: Coherent Thought Content: No Passive Wish, No Suicidal Planning, No Homicidal Ideation, No Paranoid Ideation - Sensorium Experiencing Hallucinations: No, Sensorium is Clear Type of Hallucinations: Visual: No, Auditory: No, Command: No - Level of Consciousness Level of Consciousness: Alert Orientation: Yes Intact, Yes Orientated to Time, Yes Orientated to Place, Yes Orientated to Person - Impulse Control Impulse Control: Tenuous - Insight and Judgement Insight and Judgement: Fair - Group Participation Particating in Group Activities: Yes - Medication Management Medication Management Adherence: Yes Assessment - Assessment Merits Inpatient Hospitalization: Consolidate Improvements, Pending Safe DC Plan Inpatient DSM-IV Dx: Schizoaffective disorder, bipolar type; Clinical Impression: 27 y.o. single, white male with a history of schizoaffective DO, bipolar type brought in by EMS on a 9.45 by the ACT team due to paranoid, agitated and bizarre behavior in the community, again related to serial non-adherence with oral medications. Plan - Plan Treatment Plan: Name: SPENCER BECK Birthdate: 1990 [id number] We have started a trial of ziprasidone 60mg PO BID which he is tolerating well. Psychosis is improving. Target , 11/09, for discharge to ACT Team. Continued Medication Management: Start Medication Medications: Current Medications Acetaminophen (Tylenol Tab*) 650 mg PO Q4H PRN PRN Reason: for pain; or Temp >101 F Al Hydrox/Mg Hydrox/Simethicone (Maalox Plus*) 30 ml PO Q4H PRN PRN Reason: INDIGESTION Haloperidol (Haldol Tab*) 5 mg PO Q6H PRN PRN Reason: AGITATION Lorazepam (Ativan Tab(*)) 2 mg PO Q6H PRN PRN Reason: ANXIETY Multivitamins/Minerals (Theragran/Minerals Tab*) 1 tab PO DAILY [facility] Last Admin: 11/08/17 08:04 Dose: 1 tab Nicotine (Nicotine Inhaler*) 10 mg INH Q2H PRN PRN Reason: CRAVING Nicotine Polacrilex (Nicotine Gum*) 2 mg PO Q2H PRN PRN Reason: CRAVING Ziprasidone (Geodon (Generic) *) 60 mg PO BID [facility] Last Admin: 11/08/17 08:04 Dose: 60 mg - Discharge Plan Discharge Plan: Outpatient Follow Up Outpatient Program: ACT team Lab Results - Lab Results Lab Results: 11/08/17 11/08/17 08:23 08:23 Hemoglobin A1c 5.0 Triglycerides 126 Cholesterol 149 LDL Cholesterol 80 HDL Cholesterol 43.6
[2017-11-09] MEDS: Ziprasidone * 20 MG CAP (generic Geodon) PO SCH (07:47)
[2017-11-09] MEDS: Multivitamins/Minerals TAB PO SCH (07:47)
[2017-11-09 08:19] VITALS: BP 123/64
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
== END 2017-11-09 11:34 | disposition home or self-care (01) | DRG 885 ==
LOC: ED 12:19 → BSU 14:22 → ED 14:31
PROVIDERS: ADMIT Psychiatry & Neurology Psychiatry; ATTEND Psychiatry & Neurology Psychiatry
PROC: GZHZZZZ Group Psychotherapy (ICD-10-PCS; principal; 2017-11-07)
DX: F25.0 Schizoaffective disorder, bipolar type (principal); F22 Delusional disorders; F12.90 Cannabis use, unspecified, uncomplicated; F17.210 Nicotine dependence, cigarettes, uncomplicated; F31.9 Bipolar disorder, unspecified; R45.1 Restlessness and agitation; H91.90 Unspecified hearing loss, unspecified ear; F43.10 Post-traumatic stress disorder, unspecified; Z88.8 Allergy status to other drugs, medicaments and biological substances; Z91.14 Patient's other noncompliance with medication regimen; Z91.19 Patient's noncompliance with other medical treatment and regimen; Z72.0 Tobacco use
CPT/HCPCS: 36415; 80053; 80061; 80320; 80329; 83036; 84443; 85025; 99222; 99231; 99238; A9270-GY; G0480

== ENCOUNTER 2017-11-30 15:57 | Inpatient (IN) | payer MEDICARE, MEDICAID ==
[2017-11-30 17:21] LABS: ABS Basophils 0 10^3/ul (0-0.2); ABS Eosinophils 0.1 10^3/ul (0-0.6); ABS Lymphocytes 1.5 10^3/ul (1.0-4.8); ABS Monocytes 0.4 10^3/ul (0-0.8); ABS Neutrophils 2.4 10^3/ul (1.5-7.7); ABS Nucleated RBC 0 10^3/ul; Eosinophil % 1.7 % (0-6); Hematocrit 45 % (42-52); Hemoglobin 15.5 g/dl (14.0-18.0); Lymphocyte % 32.9 % (25-47); Mean Corpuscular HGB Conc 34 g/dl (31-36); Mean Corpuscular Hemoglobin 33 pg (27-31); Mean Corpuscular Volume 95 fL (80-94); Mean Platelet Volume 7 um3 (7.4-10.4); Nucleated Red Blood Cells % 0.1; Platelet Count 236 10^3/ul (150-450); Red Blood Count 4.74 10^6/ul (4.0-5.4); Red Cell Distribution Width 13 % (10.5-15); White Blood Count 4.4 10^3/ul (3.5-10.8)
[2017-11-30 17:36] LABS: EGFR Non-African American 88.3 (>60)
--- NOTE | 2017-11-30 20:44 | ED ---
Sergio Pulliam Thomas, scribed for Rui Cheney MD on 11/30/17 at 1628 . Psychiatric Complaint - HPI Summary HPI Summary: The patient is a 27 year old male who was brought in at 09:45 and presents with pressured speech and is hyperactive. - History Of Current Complaint Time Seen by Provider: 11/30/17 16:08 Hx From Patient Unobtainable Due To: Altered Mental Status Onset/Duration: Still Present Timing: Constant Character: Manic Aggravating Factor(s): Nothing Alleviating Factor(s): Nothing - Allergies/Home Medications Allergies/Adverse Reactions: Allergies Allergy/AdvReac Type Severity Reaction Status Date / Time No Known Allergies Allergy Verified 05/13/17 13:39 PMH/Surg Hx/FS Hx/Imm Hx Cardiovascular History: Denies: Hx Hypertension Sensory History: Reports: Hx Contacts or Glasses Denies: Hx Hearing Aid Opthamlomology History: Reports: Hx Contacts or Glasses Psychiatric History: Reports: Hx Post Traumatic Stress Disorder, Hx Inpatient Treatment, Hx Community Mental Health Tx, Hx Schizophrenia, Hx Bipolar Disorder , Other Psychiatric Issues/Disorders - Schizoeffective disorder Denies: Hx of Violent Episodes Against Others Comment Only: Hx Eating Disorder - Unable to determine from pt at time of MHE d/t disorganized thoughts Infectious Disease History: No Infectious Disease History: Denies: Traveled Outside the [place] in Last 30 Days - Family History Known Family History: Negative: Cardiac Disease, Hypertension, Diabetes - Social History Alcohol Use: None Alcohol Amount: denies - "none since 2013 when the [employer] and FBI were contacted and informed" Hx Substance Use: Yes - marijuana Substance Use Type: Reports: None Substance Use Comment - Amount & Last Used: denies "none since 2013 when the [employer] and FBI were contacted and informed" Hx Tobacco Use: Yes Smoking Status (MU): Current Some Day Smoker Type: Cigarettes Amount Used/How Often: one PPD Review of Systems Negative: Fever Negative: Vomiting Positive: Anxious, Other - Pressured speech, hyperactive All Other Systems Reviewed And Are Negative: Yes Physical Exam - Summary Physical Exam Summary: General: well-appearing, no pain distress Skin: warm, color reflects adequate perfusion, dry Head: normal Eyes: EOMI, MARLEN ENT: normal Neck: supple, nontender Respiratory: CTA, breath sounds present Cardiovascular: RRR Abdomen: soft, nontender Bowel: present Musculoskeletal: normal, strength/ROM intact Neurological: normal, sensory/motor intact, A&O x3 Psychological: Pressured speech. Hyperactive. Triage Information Reviewed: Yes Vital Signs On Initial Exam: Initial Vitals Temp Pulse Resp BP Pulse Ox 97.7 F 88 18 130/76 99 11/30/17 16:09 11/30/17 16:09 11/30/17 16:09 11/30/17 16:09 11/30/17 16:09 Vital Signs Reviewed: Yes Diagnostics - Vital Signs Vital Signs Temp Pulse Resp BP Pulse Ox 11/30/17 16:09 97.7 F 88 18 130/76 99 - Laboratory Lab Results: Lab Results 11/30/17 11/30/17 Range/Units 17:05 17:05 WBC 4.4 (3.5-10.8) 10^3/ul RBC 4.74 (4.0-5.4) 10^6/ul Hgb 15.5 (14.0-18.0) g/dl Hct 45 (42-52) % MCV 95 H (80-94) fL MCH 33 H (27-31) pg MCHC 34 (31-36) g/dl RDW 13 (10.5-15) % Plt Count 236 (150-450) 10^3/ul MPV 7 L (7.4-10.4) um3 Neut % (Auto) 54.6 (38-83) % Lymph % (Auto) 32.9 (25-47) % Anson % (Auto) 10.1 H (1-9) % Eos % (Auto) 1.7 (0-6) % Baso % (Auto) 0.7 (0-2) % Absolute Neuts (auto) 2.4 (1.5-7.7) 10^3/ul Absolute Lymphs (auto) 1.5 (1.0-4.8) 10^3/ul Absolute Monos (auto) 0.4 (0-0.8) 10^3/ul Absolute Eos (auto) 0.1 (0-0.6) 10^3/ul Absolute Basos (auto) 0 (0-0.2) 10^3/ul Absolute Nucleated RBC 0 10^3/ul Nucleated RBC % 0.1 Sodium 137 (133-145) mmol/L Potassium 3.8 (3.5-5.0) mmol/L Chloride 106 (101-111) mmol/L Carbon Dioxide 23 (22-32) mmol/L Anion Gap 8 (2-11) mmol/L BUN 13 (6-24) mg/dL Creatinine 1.00 (0.67-1.17) mg/dL Est GFR ( Amer) 113.6 (>60) Est GFR (Non-Af Amer) 88.3 (>60) BUN/Creatinine Ratio 13.0 (8-20) Glucose 92 (70-100) mg/dL Calcium 9.6 (8.6-10.3) mg/dL Total Bilirubin 0.40 (0.2-1.0) mg/dL AST 18 (13-39) U/L ALT 11 (7-52) U/L Alkaline Phosphatase 45 (34-104) U/L Total Protein 7.3 (6.4-8.9) g/dL Albumin 4.3 (3.2-5.2) g/dL Globulin 3.0 (2-4) g/dL Albumin/Globulin Ratio 1.4 (1-3) TSH 0.98 (0.34-5.60) mcIU/mL Salicylates < 2.50 (<30) mg/dL Acetaminophen < 15 mcg/mL Serum Alcohol < 10 (<10) mg/dL Result Diagrams: 11/30/17 17:05 11/30/17 17:05 Lab Statement: Any lab studies that have been ordered have been reviewed, and results considered in the medical decision making process. Course/Dx - Course Course Of Treatment: Medications reviewed. BP noted and advised follow up with PMD. ADMIT MHU - Differential Dx/Clinical Impression Provider Diagnosis: Blood pressure elevated without history of HTN, Mental health problem Discharge - Discharge Plan Condition: Stable Disposition: [facility] Referrals: No Primary Care Phys,NOPCP [Primary Care Provider] - The documentation as recorded by the Sergio garcia Thomas accurately reflects the service I personally performed and the decisions made by , Rui Cheney MD.
[2017-12-01] MEDS ORDERED: Mouth Piece, Nicotine* 1 EACH CARTRIDGE INH SCH (01:58)
[2017-12-01] MEDS ORDERED: Nicotine GUM* 2 MG PO PRN (01:58)
[2017-12-01] MEDS ORDERED: Nicotine Inhaler* 10 MG AMP INH PRN (01:58)
[2017-12-01] MEDS ORDERED: Al Hydrox/Mg Hydrox/Simet LIQ* 30 ML UDC PO PRN (01:58)
[2017-12-01] MEDS ORDERED: Acetaminophen TAB* 325 MG PO PRN (01:58)
[2017-12-01] MEDS: Ziprasidone * 20 MG CAP (generic Geodon) PO SCH ×2 (10:14→18:29)
[2017-12-01] MEDS: Vitamin THERAPEUTIC TAB PO SCH (10:14)
[2017-12-01] MEDS: Moisturizing CREAM* 120 GM JAR TOPICAL SCH ×2 (14:37→20:12)
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
[2017-12-02 08:07] VITALS: BP 130/64
[2017-12-02] MEDS: Vitamin THERAPEUTIC TAB PO SCH (08:50)
[2017-12-02] MEDS: Ziprasidone * 20 MG CAP (generic Geodon) PO SCH ×2 (08:50→16:59)
[2017-12-02] MEDS: Moisturizing CREAM* 120 GM JAR TOPICAL SCH ×3 (08:50→21:30)
--- NOTE | 2017-12-02 14:29 | PN ---
Subjective - Subjective Date of Service: 12/02/17 Service Type: 24564 Hosp care 15 min low complexity Subjective: Spencer continues to decline medication. He shows no insight into his condition or the concerning behaviors leading to admission. Regarding the numerous daily, delusional phone calls he was making to various law enforcement agencies in the area, he remains unapologetic and seemingly unaware of why these behaviors are problematic for the community. "I feel like I'm still working on my relationship with the police. I want to build that trust. I want them to trust me." He presents as paranoid and fearful of certain staff and peers. He denies SI or HI. Objective - Appearance Appearance: Well Developed/Nourished Dysmorphic Features: No Hygiene: Normal Grooming: Fairly Well Kept - Behavior Psychomotor Activities: Normal Exhibits Abnormal Movement: No - Attitude and Relatedness Attitude and Relatedness: Psychotically Related Eye Contact: Fair - Speech Quality: Pressured Latencies: Short Quantity: Copious - Mood Patient's Decription of Mood: "Fine" - Affect Observed Affect: Tense Affect Consistent with: Dysphoria - Thought Process Patient's Thought Process: Tangential Thought Content: Yes Paranoid Ideation, No Passive Wish, No Suicidal Planning, No Homicidal Ideation - Sensorium Experiencing Hallucinations: No, Sensorium is Clear Type of Hallucinations: Visual: No, Auditory: No, Command: No - Level of Consciousness Level of Consciousness: Alert Orientation: Yes Intact, Yes Orientated to Time, Yes Orientated to Place, Yes Orientated to Person - Impulse Control Impulse Control: Poor - Insight and Judgement Insight and Judgement: Impaired - Group Participation Particating in Group Activities: No - Medication Management Medication Management Adherence: No Assessment - Assessment Merits Inpatient Hospitalization: For Immediate Safety, For Stabilization Inpatient DSM-IV Dx: Schizoaffective DO, Bipolar Type Clinical Impression: 27 y.o. single, homosexual white male with a history of schizoaffective disorder , [facility], who returns to the hospital on 9.45 legal paperwork secondary to disorganized and bizarre behavior in the community and inability to care for himself in the setting of serial nonadherence with indicated medications. Plan - Plan Treatment Plan: Name: SPENCER BECK Birthdate: 1990 [id number] The patient is non-adherent with prescribed ziprasidone therapy. We will start the process for T.O.O. and transfer to the [facility]. Continued Medication Management: Continue Outpt Medication Medications: Current Medications Acetaminophen (Tylenol Tab*) 650 mg PO Q4H PRN PRN Reason: PAIN or TEMP > 101 F Al Hydrox/Mg Hydrox/Simethicone (Maalox Plus*) 30 ml PO Q4H PRN PRN Reason: INDIGESTION Device (Nicotine Mouth Piece*) 1 each INH .[facility] Multi-Ingredient Ointment (Hydrocerin*) 1 applic TOPICAL BID [facility] Last Admin: 12/02/17 13:06 Dose: 1 applic Multivitamins (Theragran Tab*) 1 tab PO DAILY [facility] Last Admin: 12/02/17 08:50 Dose: Not Given Nicotine (Nicotine Inhaler*) 10 mg INH Q2H PRN PRN Reason: CRAVING Nicotine Polacrilex (Nicotine Gum*) 2 mg PO Q2H PRN PRN Reason: CRAVING Ziprasidone (Geodon (Generic) *) 60 mg PO BID WITH MEALS [facility] Last Admin: 12/02/17 08:50 Dose: Not Given - Discharge Plan Discharge Plan: Consider Longer Term Tx
[2017-12-03] MEDS: Moisturizing CREAM* 120 GM JAR TOPICAL SCH ×2 (09:53→21:16)
[2017-12-03] MEDS: Ziprasidone * 20 MG CAP (generic Geodon) PO SCH ×2 (09:53→16:25)
[2017-12-03] MEDS: Vitamin THERAPEUTIC TAB PO SCH (09:53)
[2017-12-04] MEDS: Ziprasidone * 20 MG CAP (generic Geodon) PO SCH (09:01)
[2017-12-04] MEDS: Moisturizing CREAM* 120 GM JAR TOPICAL SCH ×2 (09:01→20:37)
[2017-12-04] MEDS: Vitamin THERAPEUTIC TAB PO SCH (09:01)
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
[2017-12-04] MEDS ORDERED: risperiDONE TAB* 2 MG PO SCH (21:00)
[2017-12-05] MEDS: Moisturizing CREAM* 120 GM JAR TOPICAL SCH ×2 (09:38→21:20)
[2017-12-05] MEDS: Vitamin THERAPEUTIC TAB PO SCH (09:38)
--- NOTE | 2017-12-05 10:20 | PN ---
Subjective - Subjective Date of Service: 12/05/17 Service Type: 16136 Hosp care 15 min low complexity Subjective: Spencer took the risperidone as directed last night and states that he tolerated it well. I had a discussion with him today about the medication and made him aware that one of the metabolites of risperidone is paliperidone, which is marketed as Invega. This is apparently the medication that Spencer developed priapism with, while on injectable Invega Sustenna over last summer. After considering the theoretical risk of getting priapism from risperidone, Spencer agrees to a switch to aripiprazole therapy instead. He denies SI or HI. Objective - Appearance Appearance: Well Developed/Nourished Dysmorphic Features: No Hygiene: Normal Grooming: Fairly Well Kept - Behavior Psychomotor Activities: Normal Exhibits Abnormal Movement: No - Attitude and Relatedness Attitude and Relatedness: Cooperative Eye Contact: Fair - Speech Quality: Unpressured Latencies: Normal Quantity: Appropriate - Mood Patient's Decription of Mood: "Okay" - Affect Observed Affect: Fair Affect Consistent with: Euthymia - Thought Process Patient's Thought Process: Tangential Thought Content: Yes Paranoid Ideation, No Passive Wish, No Suicidal Planning, No Homicidal Ideation - Sensorium Experiencing Hallucinations: No, Sensorium is Clear Type of Hallucinations: Visual: No, Auditory: No, Command: No - Level of Consciousness Level of Consciousness: Alert Orientation: Yes Intact, Yes Orientated to Time, Yes Orientated to Place, Yes Orientated to Person - Impulse Control Impulse Control: Tenuous - Insight and Judgement Insight and Judgement: Fair - Group Participation Particating in Group Activities: Yes - Medication Management Medication Management Adherence: Yes Assessment - Assessment Merits Inpatient Hospitalization: For Immediate Safety, For Stabilization Inpatient DSM-IV Dx: Schizoaffective DO, Bipolar Type Clinical Impression: 27 y.o. single, homosexual white male with a history of schizoaffective disorder , [facility], who returns to the hospital on 9.45 legal paperwork secondary to disorganized and bizarre behavior in the community and inability to care for himself in the setting of serial nonadherence with indicated medications. Plan - Plan Treatment Plan: Name: SPENCER BECK Birthdate: 1990 [id number] We will discontinue risperidone due to the theoretical risk of priapism. He will start aripiprazole 5mg PO qhs tonight. We will also pursue initiation of an AOT order, in cooperation with the ACT team. Continue inpatient treatment. Continued Medication Management: Different Medication Medications: Current Medications Acetaminophen (Tylenol Tab*) 650 mg PO Q4H PRN PRN Reason: PAIN or TEMP > 101 F Al Hydrox/Mg Hydrox/Simethicone (Maalox Plus*) 30 ml PO Q4H PRN PRN Reason: INDIGESTION Device (Nicotine Mouth Piece*) 1 each INH .[facility] Multi-Ingredient Ointment (Hydrocerin*) 1 applic TOPICAL BID [facility] Last Admin: 12/05/17 09:38 Dose: Not Given Multivitamins (Theragran Tab*) 1 tab PO DAILY [facility] Last Admin: 12/05/17 09:38 Dose: Not Given Nicotine (Nicotine Inhaler*) 10 mg INH Q2H PRN PRN Reason: CRAVING Nicotine Polacrilex (Nicotine Gum*) 2 mg PO Q2H PRN PRN Reason: CRAVING - Discharge Plan Discharge Plan: Inpatient Hospitalization
[2017-12-05] MEDS: ARIPiprazole TAB* 15 MG PO SCH (20:41)
[2017-12-06] MEDS: Moisturizing CREAM* 120 GM JAR TOPICAL SCH ×2 (11:56→20:20)
[2017-12-06] MEDS: Vitamin THERAPEUTIC TAB PO SCH (11:57)
--- NOTE | 2017-12-06 13:43 | PN ---
Subjective - Subjective Date of Service: 12/06/17 Service Type: 36143 Hosp care 15 min low complexity Subjective: Spencer is tolerating aripiprazole well with no side effects thus far. He seems less paranoid and there is no evidence of bizarre behavior. He remains agreeable with AOT process. He denies SI or HI. Objective - Appearance Appearance: Well Developed/Nourished Dysmorphic Features: No Hygiene: Normal Grooming: Well Kept - Behavior Psychomotor Activities: Normal Exhibits Abnormal Movement: No - Attitude and Relatedness Attitude and Relatedness: Cooperative Eye Contact: Good - Speech Quality: Unpressured Latencies: Normal Quantity: Appropriate - Mood Patient's Decription of Mood: "Good" - Affect Observed Affect: Fair Affect Consistent with: Euthymia - Thought Process Patient's Thought Process: Coherent Thought Content: No Passive Wish, No Suicidal Planning, No Homicidal Ideation, No Paranoid Ideation - Sensorium Experiencing Hallucinations: No, Sensorium is Clear Type of Hallucinations: Visual: No, Auditory: No, Command: No - Level of Consciousness Level of Consciousness: Alert Orientation: Yes Intact, Yes Orientated to Time, Yes Orientated to Place, Yes Orientated to Person - Impulse Control Impulse Control: Tenuous - Insight and Judgement Insight and Judgement: Fair - Group Participation Particating in Group Activities: Yes - Medication Management Medication Management Adherence: Yes Assessment - Assessment Merits Inpatient Hospitalization: Consolidate Improvements, Pending Safe DC Plan Inpatient DSM-IV Dx: Schizoaffective DO, Bipolar Type Clinical Impression: 27 y.o. single, homosexual white male with a history of schizoaffective disorder , [facility], who returns to the hospital on 9.45 legal paperwork secondary to disorganized and bizarre behavior in the community and inability to care for himself in the setting of serial nonadherence with indicated medications. Plan - Plan Treatment Plan: Name: SPENCER BECK Birthdate: 1990 [id number] We have started aripiprazole 5mg PO and will continue this. We will also pursue initiation of an AOT order, in cooperation with the ACT team. Continue inpatient treatment. Continued Medication Management: Start Medication Medications: Current Medications Acetaminophen (Tylenol Tab*) 650 mg PO Q4H PRN PRN Reason: PAIN or TEMP > 101 F Al Hydrox/Mg Hydrox/Simethicone (Maalox Plus*) 30 ml PO Q4H PRN PRN Reason: INDIGESTION Aripiprazole (Abilify Tab*) 15 mg PO BEDTIME [facility] Last Admin: 12/05/17 20:41 Dose: 15 mg Device (Nicotine Mouth Piece*) 1 each INH .[facility] Multi-Ingredient Ointment (Hydrocerin*) 1 applic TOPICAL BID [facility] Last Admin: 12/06/17 11:56 Dose: Not Given Multivitamins (Theragran Tab*) 1 tab PO DAILY [facility] Last Admin: 12/06/17 11:57 Dose: Not Given Nicotine (Nicotine Inhaler*) 10 mg INH Q2H PRN PRN Reason: CRAVING Nicotine Polacrilex (Nicotine Gum*) 2 mg PO Q2H PRN PRN Reason: CRAVING - Discharge Plan Discharge Plan: Inpatient Hospitalization
[2017-12-06] MEDS: ARIPiprazole TAB* 15 MG PO SCH (20:20)
[2017-12-07] MEDS: Vitamin THERAPEUTIC TAB PO SCH (09:30)
[2017-12-07] MEDS: Moisturizing CREAM* 120 GM JAR TOPICAL SCH ×2 (09:30→20:36)
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
[2017-12-07] MEDS: ARIPiprazole TAB* 5 MG PO SCH (20:36)
--- NOTE | 2017-12-08 09:01 | PN ---
Subjective - Subjective Date of Service: 12/07/17 Service Type: 92666 Group Psychotherapy - Medication Education Group: Patient attended group and presented with flat affect that did not vary with discussion. Patient did not participate in conversation and left group early. Assessment - Assessment Inpatient DSM-IV Dx: Schizoaffective DO, Bipolar Type Plan - Plan Treatment Plan: Name: SPENCER BECK Birthdate: 1990 [id number] Medications: Current Medications Acetaminophen (Tylenol Tab*) 650 mg PO Q4H PRN PRN Reason: PAIN or TEMP > 101 F Al Hydrox/Mg Hydrox/Simethicone (Maalox Plus*) 30 ml PO Q4H PRN PRN Reason: INDIGESTION Aripiprazole (Abilify Tab*) 10 mg PO BEDTIME [facility] Last Admin: 12/07/17 20:36 Dose: 10 mg Device (Nicotine Mouth Piece*) 1 each INH .CARTRIDGE [facility] Multi-Ingredient Ointment (Hydrocerin*) 1 applic TOPICAL BID [facility] Last Admin: 12/07/17 20:36 Dose: Not Given Multivitamins (Theragran Tab*) 1 tab PO DAILY [facility] Last Admin: 12/07/17 09:30 Dose: Not Given Nicotine (Nicotine Inhaler*) 10 mg INH Q2H PRN PRN Reason: CRAVING Nicotine Polacrilex (Nicotine Gum*) 2 mg PO Q2H PRN PRN Reason: CRAVING
[2017-12-08] MEDS: Moisturizing CREAM* 120 GM JAR TOPICAL SCH ×2 (09:20→20:20)
[2017-12-08] MEDS: Vitamin THERAPEUTIC TAB PO SCH (09:20)
--- NOTE | 2017-12-08 17:14 | PN ---
Subjective - Subjective Date of Service: 12/08/17 Service Type: 68765 Hosp care 15 min low complexity Subjective: Spencer is in good spirits, appropriately requesting expanded privileges such as staff pass and computer access. He is tolerating the medications well and looking forward to discharge home. Objective - Appearance Appearance: Well Developed/Nourished Dysmorphic Features: No Hygiene: Normal Grooming: Well Kept - Behavior Psychomotor Activities: Normal Exhibits Abnormal Movement: No - Attitude and Relatedness Attitude and Relatedness: Cooperative Eye Contact: Fair - Speech Quality: Unpressured Latencies: Normal Quantity: Appropriate - Mood Patient's Decription of Mood: "Okay" - Affect Observed Affect: Good Affect Consistent with: Euthymia - Thought Process Patient's Thought Process: Coherent Thought Content: No Passive Wish, No Suicidal Planning, No Homicidal Ideation, No Paranoid Ideation - Sensorium Experiencing Hallucinations: No, Sensorium is Clear Type of Hallucinations: Visual: No, Auditory: No, Command: No - Level of Consciousness Level of Consciousness: Alert Orientation: Yes Intact, Yes Orientated to Time, Yes Orientated to Place, Yes Orientated to Person - Impulse Control Impulse Control: Tenuous - Insight and Judgement Insight and Judgement: Fair - Group Participation Particating in Group Activities: Yes - Medication Management Medication Management Adherence: Yes Assessment - Assessment Merits Inpatient Hospitalization: Consolidate Improvements, Pending Safe DC Plan Inpatient DSM-IV Dx: Schizoaffective DO, Bipolar Type Clinical Impression: 27 y.o. single, homosexual white male with a history of schizoaffective disorder , recently [facility] on 11[facility], who returns to the hospital on 9.45 legal paperwork secondary to disorganized and bizarre behavior in the community and inability to care for himself in the setting of serial nonadherence with indicated medications. Plan - Plan Treatment Plan: Name: SPENCER BECK Birthdate: 1990 [id number] We have started aripiprazole 10mg PO and will continue this. We will also pursue initiation of an AOT order, in cooperation with the ACT team. Continue inpatient treatment. Continued Medication Management: Start Medication Medications: Current Medications Acetaminophen (Tylenol Tab*) 650 mg PO Q4H PRN PRN Reason: PAIN or TEMP > 101 F Al Hydrox/Mg Hydrox/Simethicone (Maalox Plus*) 30 ml PO Q4H PRN PRN Reason: INDIGESTION Aripiprazole (Abilify Tab*) 10 mg PO BEDTIME [facility] Last Admin: 12/07/17 20:36 Dose: 10 mg Device (Nicotine Mouth Piece*) 1 each INH .CARTRIDGE [facility] Multi-Ingredient Ointment (Hydrocerin*) 1 applic TOPICAL BID [facility] Last Admin: 12/08/17 09:20 Dose: Not Given Multivitamins (Theragran Tab*) 1 tab PO DAILY [facility] Last Admin: 12/08/17 09:20 Dose: Not Given Nicotine (Nicotine Inhaler*) 10 mg INH Q2H PRN PRN Reason: CRAVING Nicotine Polacrilex (Nicotine Gum*) 2 mg PO Q2H PRN PRN Reason: CRAVING - Discharge Plan Discharge Plan: Inpatient Hospitalization
[2017-12-08] MEDS: ARIPiprazole TAB* 5 MG PO SCH (20:20)
[2017-12-09] MEDS: Vitamin THERAPEUTIC TAB PO SCH (08:34)
[2017-12-09] MEDS: Moisturizing CREAM* 120 GM JAR TOPICAL SCH ×2 (08:34→20:24)
[2017-12-09] MEDS: ARIPiprazole TAB* 5 MG PO SCH (20:23)
[2017-12-10] MEDS: Moisturizing CREAM* 120 GM JAR TOPICAL SCH ×2 (09:15→20:31)
[2017-12-10] MEDS: Vitamin THERAPEUTIC TAB PO SCH (09:15)
[2017-12-10] MEDS: ARIPiprazole TAB* 5 MG PO SCH (20:31)
[2017-12-11] MEDS: Moisturizing CREAM* 120 GM JAR TOPICAL SCH (09:49)
[2017-12-11] MEDS: Vitamin THERAPEUTIC TAB PO SCH (09:50)
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
== END 2017-12-11 13:27 | disposition home or self-care (01) | DRG 885 ==
LOC: ED 15:57 → BSU 21:46
PROVIDERS: ADMIT Psychiatry & Neurology Psychiatry; ATTEND Psychiatry & Neurology Psychiatry
DX: F25.0 Schizoaffective disorder, bipolar type (principal); F17.210 Nicotine dependence, cigarettes, uncomplicated; Z79.899 Other long term (current) drug therapy; Z88.8 Allergy status to other drugs, medicaments and biological substances
CPT/HCPCS: 36415; 80053; 80320; 80329; 84443; 85025; 90847; 90853; 99222; 99231; 99238; 99285; A9270-GY; G0480